=== PATIENT | female | born 1940 | race Caucasian/White ===

== ENCOUNTER → 2018-07-22 | Outpatient (CLI) | payer MEDICARE | LOC: LABWHC1 12:04 | PROVIDERS: ATTEND Physical Medicine & Rehabilitation | DX: Z01.812 Encounter for preprocedural laboratory examination (principal); N28.9 Disorder of kidney and ureter, unspecified | CPT/HCPCS: 36415; 82565; 84520 ==

== ENCOUNTER → 2020-04-09 | Outpatient (CLI) | payer MEDICARE ==
[2020-04-09 13:08] LABS: HCT 42.2 % (34.0-46.0); HGB 14.2 gm/dL (11.4-16.0); MCH 31.4 pg (25.0-35.0); MCHC 33.7 g/dL (31.0-37.0); Mean Platelet Volume 7.1; Platelet Count 224 k/uL (150-450); RBC 4.54 m/uL (3.80-5.40); RDW 12.7 % (11.5-15.5); WBC 6.1 k/uL (3.8-10.6)
[2020-04-09 13:09] LABS: Appearance,Urine Clear (Clear); Bilirubin,Urine Negative (Negative); Blood,Urine Negative (Negative); Color,Urine Light Yellow; Glucose,Urine (UA) Negative (Negative); Ketones,Urine Negative (Negative); Leukocyte Esterase,Urine Negative (Negative); Nitrite,Urine Negative (Negative); PH, Urine 6.5 (5.0-8.0); Protein,Urine Negative (Negative); Specific Gravity,Urine 1.004 (1.001-1.035); Urobilinogen,Urine <2.0 mg/dL (<2.0)
[2020-04-09 13:26] LABS: Partial Thromboplastin Time 26.4 sec (22.0-30.0); Prothrombin Time 10.4 sec (9.0-12.0)
[2020-04-09 13:27] LABS: ALT 18 U/L (4-34); AST 27 U/L (14-36); African American GFR (CKD) >90 (>60 ml/min/1.73 sqM); Albumin 4.3 g/dL (3.5-5.0); Alkaline Phosphatase 52 U/L (38-126); Anion Gap 6 mmol/L; Blood Urea Nitrogen 9 mg/dL (7-17); Calcium 9.4 mg/dL (8.4-10.2); Carbon Dioxide 27 mmol/L (22-30); Chloride 99 mmol/L (98-107); Glucose 91 mg/dL (74-99); Non-African American GFR(CKD) 88 (>60 ml/min/1.73 sqM); Potassium 4.1 mmol/L (3.5-5.1); Sodium 132 mmol/L (137-145); Total Bilirubin 0.7 mg/dL (0.2-1.3); Total Protein 6.5 g/dL (6.3-8.2)
== END | disposition home or self-care (01) ==
LOC: LABPAT 10:54
PROVIDERS: ATTEND Orthopaedic Surgery
DX: Z01.818 Encounter for other preprocedural examination (principal); Z01.812 Encounter for preprocedural laboratory examination
CPT/HCPCS: 80053; 81003; 85027; 85610; 85730; 87070; 93005

== ENCOUNTER → 2020-04-18 | Outpatient (CLI) | payer MEDICARE ==
--- NOTE | 2020-04-29 09:12 | MM ---
Reason for exam: screening (asymptomatic). Last mammogram was performed 1 year and 1 month ago. History: Patient is postmenopausal and is nulliparous. Family history of breast cancer in mother at age 86 and breast cancer in maternal aunt at age 70. Benign lumpectomy of the left breast, 1999. Physical Findings: A clinical breast exam by your physician is recommended on an annual basis and results should be correlated with mammographic findings. MG 3D Screening Mammo W/Cad Bilateral CC and MLO view(s) were taken. Prior study comparison: March 07, 2019, mammogram, performed at [facility]. December 16, 2017, mammogram, performed at [facility]. The breast tissue is heterogeneously dense. This may lower the sensitivity of mammography. Finding #1: Stable architectural distortion in the upper outer quadrant, middle position of the left breast, consistent with known excisional/lumpectomy changes. Finding #2: There are typically benign vascular, round calcifications in both breasts. There is no discrete abnormality. ASSESSMENT: Benign, BI-RAD 2 RECOMMENDATION: Routine screening mammogram of both breasts in 1 year.
== END | disposition home or self-care (01) ==
LOC: RADMAMWWP 12:05
PROVIDERS: ATTEND Family Medicine
DX: Z12.31 Encounter for screening mammogram for malignant neoplasm of breast (principal)
CPT/HCPCS: 77063; 77067

== ENCOUNTER → 2020-04-18 | Outpatient (CLI) | payer MEDICARE | END | disposition home or self-care (01) | LOC: LABPAT 12:29 | PROVIDERS: ATTEND Orthopaedic Surgery | DX: Z53.9 Procedure and treatment not carried out, unspecified reason (principal) | CPT/HCPCS: 86850; 86900; 86901 ==

== ENCOUNTER 2020-04-23 10:00 | Day surgery (SDC) | payer MEDICARE ==
[2020-04-16 09:51] VITALS: BMI 30.9
[~2020-04-23 10:00] MED LIST: DEXAMETHASONE SOD PHOSPHATE 10 MG/ML 1 ML VIAL IV ONE; HYDROcodone/APAP 5-325MG 1 EACH TAB PO PRN; HYDROmorphone 0.5 MG/0.5 ML SYRINGE IVP PRN; LIDOCAINE 1% (10MG/ML) FOR IV START INTRADERMA PRN; MAGNESIUM HYDROXIDE 2,400 MG/10 ML CUP PO PRN; MIDAZOLAM 2 MG/2 ML VIAL IV PRN; NALOXONE 0.4 MG/ML 1 ML VIAL IV PRN; ONDANSETRON 4 MG/2 ML VIAL IVP ONE; ONDANSETRON 4 MG/2 ML VIAL IVP PRN; fentaNYL (PF) 50 MCG/ML 2 ML AMP IVP PRN
[2020-04-23] MEDS ORDERED: ACETAMINOPHEN TAB 500 MG TAB ONE (10:43)
[2020-04-23] MEDS: LACTATED RINGERS 1,000 ML IV SCH (10:55)
[2020-04-23] MEDS ORDERED: MELOXICAM 7.5 MG TAB PO ONE (10:56)
[2020-04-23] MEDS ORDERED: GABAPENTIN 300 MG CAP PO STA (11:00)
[2020-04-23] MEDS ORDERED: TRANEXAMIC ACID 1,000 MG in SODIUM CHLORIDE 0.9% 100 ML IVPB ONE ×2 (11:34→11:45)
[2020-04-23] MEDS ORDERED: HEPARIN SODIUM,PORCINE 10,000 UNIT/ML 1 ML VIAL ONE (11:45)
[2020-04-23] MEDS ORDERED: PROPOFOL 10 MG/ML 20 ML VIAL IV ONE (11:45)
[2020-04-23] MEDS ORDERED: SODIUM CHLORIDE 0.9% 100 ML BAG ONE (11:45)
[2020-04-23] MEDS ORDERED: MIDAZOLAM 2 MG/2 ML VIAL ONE (11:45)
[2020-04-23] MEDS ORDERED: TRANEXAMIC ACID 1,000 MG/10 ML VIAL ONE (11:45)
[2020-04-23] MEDS ORDERED: SODIUM CHLORIDE 0.9% IRRIG 1,000 ML BTL IRRIGATION ONE (11:45)
[2020-04-23] MEDS ORDERED: ceFAZolin 3,000 MG in SODIUM CHLORIDE 0.9% IRRIGATIO 3,000 ML IRRIGATION ONE ×4 (11:50)
[2020-04-23] MEDS ORDERED: ROPIVACAINE 246.25 MG, EPINEPHrine 0.5 MG, KETOROLAC 30 MG, cloNIDine HCL/PF 80 MCG, WA... MISCELLANE ONE ×5 (12:16)
[2020-04-23] MEDS ORDERED: LACTATED RINGERS 1,000 ML IV ONE (12:34)
--- NOTE | 2020-04-23 13:28 | P.OP ---
Date of Procedure: 04/23/20 Preoperative Diagnosis: Severe osteoarthritis right hip Postoperative Diagnosis: Severe osteoarthritis right hip Procedure(s) Performed: Right total hip arthroplasty with a direct anterior approach Implants: Keith and nephew Polarstem size 3 standard Keith & Nephew R3, 3 hole acetabular shell, 48 mm Keith [employer] Nephew reflection 6.5 mm cancellus screw, 20 mm 2 Keith [employer]hew R3, XLPE 20 acetabular liner Keith & Nephew Oxinium femoral head 32 m, +0 All components were press-fit. The articulation is Oxinium on polyethylene. Anesthesia: spinal Surgeon: Emigdio Cleary Assembly Operator #1: Amalia Lombardi Estimated Blood Loss (ml): 100 Pathology: other (Femoral head) Condition: stable Disposition: PACU Indications for Procedure: After failure of conservative treatment we discussed the surgical and nonsurgical treatment options at length. Patient wishes to proceed with a total hip arthroplasty with a direct anterior approach. Complications specific to this procedure were discussed at length, including but not limited to infection, leg length discrepancy, dislocation, and nerve injury. Covid-19 was also discussed at length with the patient, and they are aware of the current policies and procedures. The patient was given the option of delaying surgery, but they elect to proceed knowing these risks. Patient is aware of all these complications and informed consent was obtained Operative Findings: The operative findings are consistent with severe osteoarthritis of the right hip Description of Procedure: Patient was seen and evaluated in the preoperative area, consent was reviewed, and the surgical site was marked with a skin marker. Patient was then brought to the operating room and given prophylactic antibiotics intravenously. 1 g of Tranexamic acid was also given. A spinal anesthetic was administered by the anesthesia department. The patient was then placed on the [place] table with the bony prominences well-padded. The hip area was then prepped and draped in usual sterile fashion. A universal timeout was then performed, which confirmed the patient's name, surgical site, ALLERGIES, and procedure being performed. Next the incision site was located at 1 cm distal and 1 cm lateral to the anterior superior iliac spine. The skin and subcutaneous tissues were sharply incised. Incision was carefully dissected down to the fascia overlying the tensor fascia arturo muscle. This fascia was then incised in line with the incision. Next, using blunt finger dissection, the tensor fascia arturo muscle was dissected off its investing fascia. The muscle was then carefully retracted laterally with a cobra retractor over the lateral neck of the femur. Next, the circumflex vessels were identified and cauterized using the AquaMantis device. The anterior hip capsule was then exposed. The capsule was then opened and an inverted T fashion. Cobra retractors were then placed intracapsularly. The proximal femur was then visualized. The femoral neck was then osteotomized appropriate level above the lesser trochanter. Small amount of traction was placed with the [place] table. A small wedge of bone was then removed from the remaining femoral head. Next, using a corkscrew femoral head was easily removed from the acetabulum. On gross visual inspection, the femoral head had complete loss of articular cartilage in multiple periarticular osteophytes. Attention was then turned to the acetabulum. the acetabulum was exposed and any remaining labrum was excised. Sequential reaming of the acetabulum was performed using fluoroscopic guidance. When the appropriate size was reached, a trial was then placed. The position and fit of the trial was checked with fluoroscopy. The trial was then removed. Then, using fluoroscopic guidance, the final implant was impacted at 20 of anteversion and 40 of abduction, and fully seated in the acetabulum. 2 screws were then placed in the acetabulum. Again fluoroscopy was used to check position of the screws. Next, the liner was then impacted, with a 20 elevated liner located in the anterior superior quadrant. Component locking was confirmed. Attention was then directed to the femur. With the aid of the [place] table, the femur was externally rotated to approximately 130, extended, and abducted under the opposite leg. A side hook was then placed under the proximal femur, and the side hook elevator was used to elevate the proximal femur. Retractors were then placed. A capsular release was performed, as well as a release of the conjoined tendon, which afforded excellent visualization of the proximal femur. Next, a box osteotome was used to lateralize the proximal femur. A hand potter was then used to locate the femoral canal. Sequential broaching was then performed with appropriate size which afforded excellent fixation in the proximal femur. A trial was then placed with appropriate head and neck, and the hip was gently reduced with the aid of the [place] table. Fluoroscopy was then used to check position of the components, as well as to ensure equal leg lengths. The hip was then gently dislocated and the trials were then removed. Final implants were then impacted and the hip was again reduced. Final fluoroscopic x-rays confirmed that the components were in anatomic position, as well as equal leg lengths. The hip was also taken through range of motion, and found to be stable. The hip was then copiously irrigated with antibiotic solution with pulsatile lavage. The hip was then irrigated with Irrisept solution. The soft tissues were then injected with a ropivacaine solution, which consisted of 246.25 mg of ropivacaine, 0.5 mg of epinephrine, 30 mg of Toradol, 80 g of clonidine, and 48.45 mL of sterile water, for a total of 100 mL of fluid injected. A second dose of 1 g of Tranexamic acid was also given. the fascia was then closed with 2-0 strata fix suture. The subcutaneous tissue was closed with 3-0 Vicryl. The subcuticular tissue was closed with 3-0 strata fix suture. The skin was then closed with Dermabond glue and a sterile silver dressing. The patient was then transferred to the recovery room in stable condition. The multimedia production assistant JULI Patrick was required due to the complexity of surgery, and the need for skilled assistant public defender for positioning, draping, exposure, retraction, and closure of the wound.
--- NOTE | 2020-04-23 13:47 | XR ---
Fluoroscopy INDICATION: Pain FINDINGS: Fluoroscopy time: 36 seconds. Images obtained: 2. IMPRESSIONS: 1. Documentation of fluoroscopy.
[2020-04-23 13:50] VITALS: RESP 16
--- NOTE | 2020-04-23 13:53 | FL ---
Fluoroscopy INDICATION: Pain FINDINGS: Fluoroscopy time: 36 seconds. Images obtained: 0. IMPRESSIONS: 1. Documentation of fluoroscopy.
--- NOTE | 2020-04-23 14:06 | XR ---
EXAMINATION TYPE: XR Hip Limited RT DATE OF EXAM: 04/23/2020 COMPARISON: None HISTORY: Postop TECHNIQUE: AP right hip FINDINGS: Femoral and acetabular components of in place. No acute fractures are evident. Postsurgical changes are within soft tissues. IMPRESSION: 1. No acute fracture post right hip replacement.
[2020-04-23] MEDS: SODIUM CHLORIDE 0.9% 1,000 ML IV SCH ×2 (17:31→20:18)
[2020-04-23 17:37] LABS: Glucose,Whole Blood 121 mg/dL (75-99)
[2020-04-23] MEDS ORDERED: ACETAMINOPHEN TAB 500 MG TAB PO PRN (18:59)
[2020-04-23] MEDS: ASPIRIN 325 MG TAB PO SCH (20:17)
[2020-04-23] MEDS ORDERED: SENNOSIDES-DOCUSATE SODIUM 1 EACH TAB PO SCH (21:00)
[2020-04-23] MEDS: HYDROmorphone 0.5 MG/0.5 ML SYRINGE IVP PRN (21:49)
--- NOTE | 2020-04-23 22:28 | P.CONS ---
History of Present Illness - Reason for Consult Consult date: 04/23/20 Medical management Requesting physician: Emigdio Cleary - Chief Complaint Post right total hip direct anterior approach arthroplasty - History of Present Illness 79-year-old female one of Dr. Vyas's patient with past medical history of hypertension and hyperlipidemia with severe arthritis with worsening pain and discomfort of both hip had seen Dr. Cleary and further x-ray and testing revealed bilateral hip severe arthritis require surgery patient was more symptomatic of the right side ended up going for right total hip anterior approach arthroplasty today successfully she is complaining of mild pain otherwise no dropping foot no major problem with palpitation arrhythmia patient remain hemodynamically stable. Review of Systems CONSTITUTIONAL: Well-developed no acute respiratory distress. EYES: No icterus sclerae, no conjunctivitis. EARS, NOSE, MOUTH, THROAT, and FACE: No sore throat, lymphadenopathy, carotid bruits or deformity. RESPIRATORY: No SOB cough or wheezes. CARDIOVASCULAR: No CP, Palpitation, PND, Orthopnea, or angina. GASTROINTESTINAL: No Abd pain, Nausea or vomiting, no Diarrhea or constipation, No GI Bleed, no distention or masses. GENITOURINARY: Negative for Hematuria or UTI, no kidney stones. INTEGUMENT/BREAST: Negative for any muscular injury with mild osteoarthritis.. HEMATOLOGIC/LYMPHATIC: Negative for bleed or purpura. MUSCULOSKELTAL: Slight pain and discomfort in the right hip area. NEURLOGICAL: No LOC, Sz or syncope, blurred vision dizziness or abnormality.. BEHAVIORAL/PSYCH: Negative. ENDOCRINE: Negative. Past Medical History Past Medical History: Cancer, Hyperlipidemia, Hypertension, Osteoarthritis (OA), Thyroid Disorder Additional Past Medical History / Comment(s): hx migraines, hx thyroid cancer, hx kidney stone, History of Any Multi-Drug Resistant Organisms: None Reported Past Surgical History: Tonsillectomy Additional Past Surgical History / Comment(s): thyroidectomy, maria eugenia cataracts,right total hip arthroplasty Past Anesthesia/Blood Transfusion Reactions: Motion Sickness Past Psychological History: Anxiety Smoking Status: Never smoker Past Alcohol Use History: Daily Additional Past Alcohol Use History / Comment(s): 2 glasses of wine most days Past Drug Use History: None Reported - Past Family History Mother Family Medical History: Cancer Additional Family Medical History / Comment(s): colon ,breast Brother(s) Family Medical History: Cancer Additional Family Medical History / Comment(s): throat cancer Medications and Allergies Home Medications Medication Instructions Recorded Confirmed Type Acetaminophen [Tylenol Extra 1,000 mg PO BID PRN 04/16/20 04/16/20 History Strength] Ibuprofen [Advil] 200 mg PO Q8HR PRN 04/16/20 04/16/20 History Levothyroxine Sodium [Levoxyl] 125 mcg PO MOTUWETHFRSA 04/16/20 04/16/20 History Losartan Potassium [Cozaar] 50 mg PO DAILY 04/16/20 04/16/20 History Simvastatin [Zocor] 20 mg PO DAILY 04/16/20 04/16/20 History hydroCHLOROthiazide [Hydrodiuril] 12.5 mg PO DAILY 04/16/20 04/16/20 History Allergies Allergy/AdvReac Type Severity Reaction Status Date / Time cat dander Allergy Unknown Verified 04/23/20 10:15 Penicillins Allergy Rash/Hives Verified 04/23/20 10:15 Sulfa (Sulfonamide Allergy Unknown Verified 04/23/20 10:15 Antibiotics) Childhood Physical Exam Vitals: Vital Signs Temp Pulse Pulse Resp BP BP Pulse Ox 04/23/20 17:14 98.5 F 71 16 111/68 93 L 04/23/20 16:45 72 16 138/67 99 04/23/20 16:00 70 16 149/69 98 04/23/20 15:30 63 16 127/66 98 04/23/20 15:15 67 16 122/61 97 04/23/20 15:00 66 16 118/59 98 04/23/20 14:45 68 16 118/57 100 04/23/20 14:30 66 16 116/56 99 04/23/20 14:15 64 16 111/57 99 04/23/20 14:00 67 16 108/61 100 04/23/20 13:46 70 16 101/55 97 04/23/20 13:31 97.4 F L 75 14 96/54 95 04/23/20 10:19 98.3 F 77 16 157/74 97 Intake and Output 04/23/20 04/23/20 04/23/20 06:59 14:59 22:59 Intake Total 1451 Output Total 100 Balance 1351 Intake: IV 1451 Output: Estimated Blood Loss 100 Other: Weight 86.3 kg 86.3 kg General Appearance: Alert, cooperative, no distress, appears stated age. Neck HEENT: Supple, no lymphadenopathy, no thyroid enlargement, no carotid bruits. Lungs: Clear to auscultation without crackles or wheezes no rhonchi, no deformity. Chest Wall: Chest wall normal expansion with deep inspiration no tenderness and no deformity was found on exam, no costochondral pain or discomfort. Heart: Regular rate and rhythm, S1, S2 normal, no murmur, rub or gallop. Back: Symmetric, no curvature, ROM normal, no CVA tenderness. Abdomen: Soft, non-tender, bowel sounds active all four quadrants, no masses, no organomegaly. Extremities: Extremities normal, atraumatic, no cyanosis or edema. Pulses: 2+ and symmetric. Skin: Skin color, texture, tugor normal, no rashes or lesions. Neurologic: Alert oriented x3 cranial nerves II through XII intact, no motor deficit, no abnormal balance or gait. General Appearance: Alert, cooperative, no distress, appears stated age. Neck HEENT: Supple, no lymphadenopathy, no thyroid enlargement, no carotid bruits. Lungs: Clear to auscultation without crackles or wheezes no rhonchi, no deformity. Chest Wall: Chest wall normal expansion with deep inspiration no tenderness and no deformity was found on exam, no costochondral pain or discomfort. Heart: Regular rate and rhythm, S1, S2 normal, no murmur, rub or gallop. Back: Symmetric, no curvature, ROM normal, no CVA tenderness. Abdomen: Soft, non-tender, bowel sounds active all four quadrants, no masses, no organomegaly. Extremities: Incision of the right hip looks good with no sign of induration bleeding or hematoma. Pulses: 2+ and symmetric. Skin: Skin color, texture, tugor normal, no rashes or lesions. Neurologic: Alert oriented x3 cranial nerves II through XII intact, no motor deficit, no abnormal balance or gait. Results Labs: Abnormal Lab Results - Last 24 Hours (Table) 04/23/20 Range/Units 17:25 POC Glucose (mg/dL) 121 H (75-99) mg/dL Assessment and Plan Assessment: 1 post right total hip arthroplasty direct anterior approach, doing well resume home meds, continue to watch patient and with [place] status, watch for any infection. 2 hypertension: Stable so far on losartan 50 mg daily and hydrochlorothiazide 12.5 mg a day. 3 hyperlipidemia: Remain on Zocor 20 mg daily. 4 chronic edema: Remain on diuretics. 5 hypothyroidism: Continue 125 g of levothyroxine. 6 pain management: Patient on hydrocodone on as-needed basis. 7 history of thyroid cancer: Has been in remission and doing well with outside replacement. 8 DVT prophylaxis: Patient will be on anticoagulation. Orthopedic protocol. CODE STATUS: Full code. Dr. Cleary thank you very much for the consult I can be any further help to please let me know.
[2020-04-24] MEDS: HYDROmorphone 0.5 MG/0.5 ML SYRINGE IVP PRN (02:34)
[2020-04-24 04:29] VITALS: TEMP 98.2
[2020-04-24] MEDS: LACTATED RINGERS 1,000 ML IV SCH (05:19)
[2020-04-24] MEDS ORDERED: LEVOTHYROXINE 125 MCG TAB PO SCH (06:30)
[2020-04-24 07:29] VITALS: BP 97/61; PULSE 77
[2020-04-24] MEDS ORDERED: KETOROLAC 15 MG/ML 1 ML VIAL IVP PRN (08:16)
[2020-04-24] MEDS ORDERED: HYDROcodone/APAP 7.5-325MG 1 EACH TAB PO PRN ×2 (08:17)
[2020-04-24] MEDS: ASPIRIN 325 MG TAB PO SCH (08:24)
--- NOTE | 2020-04-24 08:41 | P.DS ---
Providers Expected date of discharge: 04/24/20 Attending physician: Emigdio Cleary Consults: 04/23/20 06:55 Consult Physician Routine Consulting Provider: Vineet Cool Reason/Comments: medical management Do you want consulting provider notified?: Yes Primary care physician: Boaz Vyas - Discharge Diagnosis(es) (1) Osteoarthritis of right hip Current Visit: Yes Status: Acute (2) Status post total hip replacement, right Current Visit: Yes Status: Acute Hospital Course: This is a 79-year-old female with known history of degenerative arthritis of the right hip. The patient presents for evaluation. After discussion and consideration patient elects to proceed with total hip arthroplasty. The patient is seen preoperatively by Dr. Cleary and medically cleared for surgery by their primary care physician. Patient is admitted to [facility] on 04/23/2020 for total hip arthroplasty. The procedures performed without complication or sequelae. The patient is doing well postoperatively. Labs and vital signs are stable on day of discharge. On day of discharge patient's hip incision is healing well. There is minimal erythema. There is no drainage noted at this time. There is minimal soft tissue swelling to the hip and thigh. Patient has full foot and ankle motion without difficulty or pain. Calf is soft and nontender to palpation. Neurovascular status to the right lower extremity is intact. Patient is discharged home in good condition. Opioid start talking form is reviewed and signed at patient bedside. Please see med rec for accurate list of home medications. Plan - Discharge Summary Discharge Rx Participant: No New Discharge Prescriptions: New Aspirin 325 mg PO BID #60 tab HYDROcodone/APAP 5-325MG [[place] 5-325] 1 - 2 tab PO Q6HR PRN #48 tab PRN Reason: Pain Sennosides [Senokot] 2 tab PO DAILY PRN #60 tablet PRN Reason: Constipation No Action hydroCHLOROthiazide [Hydrodiuril] 12.5 mg PO DAILY Losartan Potassium [Cozaar] 50 mg PO DAILY Levothyroxine Sodium [Levoxyl] 125 mcg PO MOTUWETHFRSA Simvastatin [Zocor] 20 mg PO DAILY Ibuprofen [Advil] 200 mg PO Q8HR PRN PRN Reason: Pain Acetaminophen [Tylenol Extra Strength] 1,000 mg PO BID PRN PRN Reason: Pain Discharge Medication List Acetaminophen [Tylenol Extra Strength] 1,000 mg PO BID PRN 04/16/20 [History] Ibuprofen [Advil] 200 mg PO Q8HR PRN 04/16/20 [History] Levothyroxine Sodium [Levoxyl] 125 mcg PO MOTUWETHFRSA 04/16/20 [History] Losartan Potassium [Cozaar] 50 mg PO DAILY 04/16/20 [History] Simvastatin [Zocor] 20 mg PO DAILY 04/16/20 [History] hydroCHLOROthiazide [Hydrodiuril] 12.5 mg PO DAILY 04/16/20 [History] Aspirin 325 mg PO BID #60 tab 04/24/20 [Rx] HYDROcodone/APAP 5-325MG [[place] 5-325] 1 - 2 tab PO Q6HR PRN #48 tab 04/24/20 [Rx] Sennosides [Senokot] 2 tab PO DAILY PRN #60 tablet 04/24/20 [Rx] Follow up Appointment(s)/Referral(s): Amalia Lombardi PAC [PHYSICIAN SKI PATROL OFFICER] - 05/06/20 1:30 pm Boaz Vyas MD [Primary Care Provider] - 1 Week Activity/Diet/Wound Care/Special Instructions: Weightbearing as tolerated with walker. Leave dressing intact. Dressing may be removed by home care nurse or by patient in 10 days. May shower with dressing on. Please take aspirin 325mg twice daily for 30 days to prevent blood clots. Recommend use of compression stockings daily until follow up to help prevent swelling and blood clots. May remove at night before sleeping. Please follow-up with [facility] in 2 weeks and call with any questions or concerns, . Discharge Disposition: HOME WITH HOME HEALTH SERVICES
[2020-04-24] MEDS ORDERED: FAMOTIDINE 20 MG TAB PO SCH (09:00)
[2020-04-24] MEDS ORDERED: ATORVASTATIN 10 MG TAB PO SCH (09:00)
[2020-04-24] MEDS ORDERED: MELOXICAM 7.5 MG TAB PO SCH (09:00)
[2020-04-24] MEDS ORDERED: LOSARTAN 50 MG TAB PO SCH (09:00)
[2020-04-24 10:20] LABS: Basophils % (A) 0 %; Eosinophils # (A) 0.1 k/uL (0-0.7); Eosinophils % (A) 1 %; HCT 34.3 % (34.0-46.0); HGB 11.5 gm/dL (11.4-16.0); Lymphocytes # (A) 2.1 k/uL (1.0-4.8); Lymphocytes % (A) 20 %; MCH 32.1 pg (25.0-35.0); MCHC 33.6 g/dL (31.0-37.0); MCV 95.3 fL (80.0-100.0); Mean Platelet Volume 7.4; Monocytes # (A) 0.7 k/uL (0-1.0); Monocytes % (A) 6 %; Neutrophils # (A) 7.8 k/uL (1.3-7.7); Neutrophils % (A) 72 %; Platelet Count 280 k/uL (150-450); RDW 12.9 % (11.5-15.5); WBC 10.8 k/uL (3.8-10.6)
--- NOTE | 2020-04-24 14:04 | P.PN ---
Subjective Progress Note Date: 04/24/20 - History of Present Illness 79-year-old female one of Dr. Vyas's patient with past medical history of hypertension and hyperlipidemia with severe arthritis with worsening pain and discomfort of both hip had seen Dr. Cleary and further x-ray and testing revealed bilateral hip severe arthritis require surgery patient was more symptomatic of the right side ended up going for right total hip anterior approach arthroplasty today successfully she is complaining of mild pain o therwise no dropping foot no major problem with palpitation arrhythmia patient remain hemodynamically stable. 04/24: patient states that she is having some difficulty with pain in moving in bed. She did not feel the [place] helped but she did receive IV pain medication which took the edge off. She has been afebrile, heart rate 77, blood pressure 97/61, pulse ox 93% on room air.blood work reveals WBC 10.8, hemoglobin 11.5.discharge plan is home with homecare. The patient will have follow-up with Dr. Boaz Vyas following discharge. Review of Systems CONSTITUTIONAL: Well-developed no acute respiratory distress. denies fever denies chills. EYES: No icterus sclerae, no conjunctivitis. EARS, NOSE, MOUTH, THROAT, and FACE: No sore throat, lymphadenopathy, carotid bruits or deformity. RESPIRATORY: No SOB cough or wheezes. CARDIOVASCULAR: No CP, Palpitation, PND, Orthopnea, or angina. GASTROINTESTINAL: No Abd pain, Nausea or vomiting, no Diarrhea or constipation, No GI Bleed, no distention or masses. GENITOURINARY: Negative for Hematuria or UTI, no kidney stones. INTEGUMENT/BREAST: Negative for any muscular injury with mild osteoarthritis.. HEMATOLOGIC/LYMPHATIC: Negative for bleed or purpura. MUSCULOSKELTAL: Slight pain and discomfort in the right hip area. NEURLOGICAL: No LOC, Sz or syncope, blurred vision dizziness or abnormality.. BEHAVIORAL/PSYCH: Negative. ENDOCRINE: Negative. physical examination General Appearance: Alert, cooperative, no distress, appears stated age. Neck HEENT: Supple, no lymphadenopathy, no thyroid enlargement, no carotid bruits. Lungs: Clear to auscultation without crackles or wheezes no rhonchi, no deformity. Chest Wall: Chest wall normal expansion with deep inspiration no tenderness and no deformity was found on exam, no costochondral pain or discomfort. Heart: Regular rate and rhythm, S1, S2 normal, no murmur, rub or gallop. Back: Symmetric, no curvature, ROM normal, no CVA tenderness. Abdomen: Soft, non-tender, bowel sounds active all four quadrants, no masses, no organomegaly. Extremities: Incision of the right hip with no sign of bleeding or hematoma. Pulses: 2+ and symmetric. Skin: Skin color, texture, tugor normal, no rashes or lesions. Neurologic: Alert oriented x3 cranial nerves II through XII intact, no motor deficit, no abnormal balance or gait. assessment and plan 1 post right total hip arthroplasty direct anterior approach, doing well resume home meds, continue to watch patient and with [place]arc[place] status, watch for any infection. 2 hypertension: Stable so far on losartan 50 mg daily and hydrochlorothiazide 12.5 mg a day. 3 hyperlipidemia: Remain on Zocor 20 mg daily. 4 chronic edema: Remain on diuretics. 5 hypothyroidism: Continue 125 g of levothyroxine. 6 pain management: Patient on hydrocodone on as-needed basis. 7 history of thyroid cancer: Has been in remission and doing well with outside replacement. 8 DVT prophylaxis. aspirin 325 mg twice daily. CODE STATUS: Full code. Dr. Cleary thank you very much for the consult I can be any further help to please let me know. Discharge Plan: home with [facility] Impression and plan of care have been directed as dictated by the signing meliton rivera. Terri Bell nurse practitioner acting as scribe for signing physician. Objective - Vital Signs Vital signs: Vital Signs Temp 98.2 F 04/24/20 07:00 Pulse 77 04/24/20 07:00 Resp 16 04/24/20 07:00 BP 97/61 04/24/20 07:00 Pulse Ox 93 L 04/24/20 07:00 Intake & Output 04/23/20 04/24/20 04/24/20 18:59 06:59 18:59 Intake Total 1451 Output Total 100 Balance 1351 Weight 86.3 kg Intake: IV 1451 Output: Estimated Blood Loss 100 Other: Voiding Method Toilet # Voids 1 - Labs CBC & Chem 7: 04/24/20 09:00 Labs: Abnormal Lab Results - Last 24 Hours (Table) 04/23/20 Range/Units 17:25 POC Glucose (mg/dL) 121 H (75-99) mg/dL
== END 2020-04-24 13:53 | disposition home health service (06) ==
LOC: OR 10:00 → EDSTATUS 11:10 → 4SSUR 13:28 → OR 04-24 13:53
PROVIDERS: ATTEND Orthopaedic Surgery
DX: M16.0 Bilateral primary osteoarthritis of hip (principal); I10 Essential (primary) hypertension; E78.5 Hyperlipidemia, unspecified; F41.9 Anxiety disorder, unspecified; E89.0 Postprocedural hypothyroidism; G43.909 Migraine, unspecified, not intractable, without status migrainosus; E66.9 Obesity, unspecified; Z79.899 Other long term (current) drug therapy; Z97.3 Presence of spectacles and contact lenses; Z85.850 Personal history of malignant neoplasm of thyroid; Z82.49 Family history of ischemic heart disease and other diseases of the circulatory system; Z88.0 Allergy status to penicillin; Z88.2 Allergy status to sulfonamides; Z87.442 Personal history of urinary calculi; Z98.41 Cataract extraction status, right eye; Z98.42 Cataract extraction status, left eye; Z90.89 Acquired absence of other organs; Z80.0 Family history of malignant neoplasm of digestive organs; Z80.3 Family history of malignant neoplasm of breast; Z80.8 Family history of malignant neoplasm of other organs or systems; Z79.890 Hormone replacement therapy; Z79.1 Long term (current) use of non-steroidal anti-inflammatories (NSAID); Z91.09 Other allergy status, other than to drugs and biological substances; Z68.32 Body mass index [BMI] 32.0-32.9, adult
CPT/HCPCS: 27130; 97110; 97161; 97535; 97165; 86891; 88305; 85025; 88311; 73501 ×2; C1776; J2250; J0171; J1644; J1100; J0690 ×3; J2405; J1885; J2795; J2704; J0735; J1170 ×2; 86850; 86900; 86901

== ENCOUNTER → 2021-02-19 | Outpatient (CLI) | payer MEDICARE ==
[2021-02-19 11:06] LABS: HCT 40.8 % (34.0-46.0); HGB 14.5 gm/dL (11.4-16.0); MCH 32.7 pg (25.0-35.0); MCHC 35.5 g/dL (31.0-37.0); MCV 92.2 fL (80.0-100.0); Mean Platelet Volume 6.9; Platelet Count 252 k/uL (150-450); RBC 4.42 m/uL (3.80-5.40); RDW 12.3 % (11.5-15.5); WBC 5.7 k/uL (3.8-10.6)
[2021-02-19 11:21] LABS: ALT 31 U/L (4-34); AST 36 U/L (14-36); African American GFR (CKD) >90 (>60 ml/min/1.73 sqM); Albumin 4.3 g/dL (3.5-5.0); Alkaline Phosphatase 58 U/L (38-126); Anion Gap 9 mmol/L; Blood Urea Nitrogen 10 mg/dL (7-17); Calcium 9.4 mg/dL (8.4-10.2); Carbon Dioxide 25 mmol/L (22-30); Chloride 103 mmol/L (98-107); Glucose 94 mg/dL (74-99); Non-African American GFR(CKD) 89 (>60 ml/min/1.73 sqM); Sodium 137 mmol/L (137-145); Total Bilirubin 0.5 mg/dL (0.2-1.3); Total Protein 6.6 g/dL (6.3-8.2)
[2021-02-19 11:37] LABS: INR 0.9 (<1.2); Partial Thromboplastin Time 26.1 sec (22.0-30.0); Prothrombin Time 10.2 sec (9.0-12.0)
[2021-02-19 11:38] LABS: Appearance,Urine Clear (Clear); Bilirubin,Urine Negative (Negative); Blood,Urine Small (Negative); Color,Urine Yellow; Glucose,Urine (UA) Negative (Negative); Ketones,Urine Negative (Negative); Leukocyte Esterase,Urine Negative (Negative); Nitrite,Urine Negative (Negative); Protein,Urine Negative (Negative); RBC,Urine 1 /hpf (0-5); Specific Gravity,Urine 1.009 (1.001-1.035); Urobilinogen,Urine <2.0 mg/dL (<2.0); WBC,Urine 1 /hpf (0-5)
== END | disposition home or self-care (01) ==
LOC: LABPAT 10:09
PROVIDERS: ATTEND Orthopaedic Surgery
DX: Z01.812 Encounter for preprocedural laboratory examination (principal); M16.12 Unilateral primary osteoarthritis, left hip
CPT/HCPCS: 36415; 80053; 81001; 85027; 85610; 85730; 87070

== ENCOUNTER 2021-02-24 08:01 | Inpatient (IN) | payer MEDICARE ==
[2021-02-20 15:32] VITALS: BMI 30.9
[~2021-02-24 08:01] MED LIST changes: +ACETAMINOPHEN TAB 500 MG TAB PO PRN; -DEXAMETHASONE SOD PHOSPHATE 10 MG/ML 1 ML VIAL IV ONE; +DEXAMETHASONE SOD PHOSPHATE 4 MG/ML 1 ML VIAL IV ONE; +GABAPENTIN 300 MG CAP PO PRN; -HYDROcodone/APAP 5-325MG 1 EACH TAB PO PRN; -HYDROmorphone 0.5 MG/0.5 ML SYRINGE IVP PRN; -LIDOCAINE 1% (10MG/ML) FOR IV START INTRADERMA PRN; -MAGNESIUM HYDROXIDE 2,400 MG/10 ML CUP PO PRN; +MELOXICAM 7.5 MG TAB PO PRN; -MIDAZOLAM 2 MG/2 ML VIAL IV PRN; -NALOXONE 0.4 MG/ML 1 ML VIAL IV PRN; -ONDANSETRON 4 MG/2 ML VIAL IVP PRN; +TRANEXAMIC ACID 1,000 MG in SODIUM CHLORIDE 0.9% 100 ML IVPB PRN; -fentaNYL (PF) 50 MCG/ML 2 ML AMP IVP PRN
[2021-02-24] MEDS ORDERED: LIDOCAINE 1% (10MG/ML) FOR IV START INTRADERMA ONE (08:42)
[2021-02-24] MEDS: LACTATED RINGERS 1,000 ML IV SCH ×2 (08:43→15:53)
[2021-02-24] MEDS ORDERED: HEPARIN SODIUM,PORCINE 10,000 UNIT/ML 1 ML VIAL ONE (09:08)
[2021-02-24] MEDS ORDERED: fentaNYL (PF) 50 MCG/ML 2 ML AMP ONE (09:08)
[2021-02-24] MEDS ORDERED: TRANEXAMIC ACID 1,000 MG/10 ML VIAL ONE (09:08)
[2021-02-24] MEDS ORDERED: SODIUM CHLORIDE 0.9% IRRIG 1,000 ML BTL IRRIGATION ONE (09:08)
[2021-02-24] MEDS ORDERED: SODIUM CHLORIDE 0.9% 100 ML BAG ONE (09:08)
[2021-02-24] MEDS ORDERED: MIDAZOLAM 2 MG/2 ML VIAL ONE (09:08)
[2021-02-24] MEDS ORDERED: PHENYLEPHRINE-0.9% NACL SYG 1,000 MCG/10 ML SYRINGE ONE (09:08)
[2021-02-24] MEDS ORDERED: PROPOFOL 10 MG/ML 20 ML VIAL IV ONE (09:08)
[2021-02-24] MEDS ORDERED: ceFAZolin 1,000 MG in SODIUM CHLORIDE 0.9% 1,000 ML IRRIGATION ONE (09:14)
[2021-02-24] MEDS ORDERED: HYDROmorphone 0.2 MG/1 ML SYRINGE IVP PRN (09:16)
[2021-02-24] MEDS ORDERED: MAGNESIUM HYDROXIDE 2,400 MG/10 ML CUP PO PRN (09:16)
[2021-02-24] MEDS ORDERED: HYDROmorphone 0.5 MG/0.5 ML SYRINGE IVP PRN ×2 (09:16)
[2021-02-24] MEDS ORDERED: NALOXONE 0.4 MG/ML 1 ML VIAL IV PRN (09:16)
[2021-02-24] MEDS ORDERED: ONDANSETRON 4 MG/2 ML VIAL IVP PRN (09:16)
[2021-02-24] MEDS ORDERED: SODIUM CHLORIDE 0.9% 1,000 ML IV SCH (09:30)
[2021-02-24] MEDS: ROPIVACAINE/EPI/CLONIDINE/KET 50 ML SYRINGE MISCELLANE PRN ×2 (09:42→10:15)
--- NOTE | 2021-02-24 10:30 | P.OP ---
Date of Procedure: 02/24/21 Preoperative Diagnosis: Severe osteoarthritis left hip Postoperative Diagnosis: Severe osteoarthritis left hip Procedure(s) Performed: Left total hip arthroplasty with a direct anterior approach Implants: [employer] Polarstem standard size 3 [employer] R3, 3 hole hemispherical acetabular shell, 48 mm [employer] Reflection 6.5 mm cancellus screw, 20 mm 2 [employer] R3, XLPE 20 acetabular liner [employer] Oxinium femoral head 32 m, +4 All components were press-fit. The articulation is Oxinium on polyethylene. Anesthesia: spinal Surgeon: Emigdio Cleary Veneer Repairer Machine #1: Amalia Lombardi Estimated Blood Loss (ml): 200 (105 mL returned with Cell Saver) Pathology: none sent Condition: stable Disposition: PACU Indications for Procedure: After failure of conservative treatment we discussed the surgical and nonsurgical treatment options at length. Patient wishes to proceed with a total hip arthroplasty with a direct anterior approach. Complications specific to this procedure were discussed at length, including but not limited to infection, leg length discrepancy, dislocation, nerve injury, and fracture. Covid-19 was also discussed at length with the patient, and they are aware of the current policies and procedures. The patient was given the option of delaying surgery, but they elect to proceed knowing these risks. Patient is aware of all these complications and informed consent was obtained Operative Findings: The operative findings are consistent with severe osteoarthritis of the left hip Description of Procedure: Patient was seen and evaluated in the preoperative area and the consent was reviewed. The operative site was marked with a skin marker. The patient was then brought to the operating room and given preoperative antibiotics intravenously. 1 g of Tranexamic acid was also given intravenously. A spinal anesthetic was administered by the anesthesia department. The patient was then placed on the [place] table with the bony prominences well-padded. The hip area was then prepped with a ChloraPrep solution and draped in the usual sterile fashion. A universal timeout was then performed, which confirmed the patient's name, surgical site, ALLERGIES, and procedure being performed on the consent. Next the incision site was located at 1 cm distal to the anterior superior iliac spine along the flexion crease of the hip. The skin and subcutaneous tissues were sharply incised. Incision was carefully dissected down to the fascia overlying the tensor fascia arturo muscle. This fascia was then incised in line with the incision. Care was taken to stay laterally in order to avoid injuring the lateral femoral cutaneous nerve. Next, using blunt finger dissection, the tensor fascia arturo muscle was dissected off its investing fascia. The muscle was then carefully retracted laterally with a cobra retractor over the lateral neck of the femur. Next, the circumflex vessels were identified and cauterized using the AquaMantis device. The anterior hip capsule was then exposed. The capsule was then opened and an inverted T fashion. Cobra retractors were then placed intracapsularly. The retractors were maintained intracapsular throughout the procedure. The proximal femur was then visualized. A small amount of traction was placed on the leg. The femoral neck was then osteotomized appropriate level above the lesser trochanter. A small wedge of bone was then removed from the remaining femoral head. Next, using a corkscrew the femoral head was removed from the acetabulum. On gross visual inspection, the femoral head had complete loss of articular cartilage and multiple periarticular osteophytes. The femoral head was then measured. Attention was then turned to the acetabulum. The acetabulum was exposed and any remaining labrum was excised. Sequential reaming of the acetabulum was performed using fluoroscopic guidance until there was a good bed of bleeding cancellus bone. When the appropriate size was reached, a trial was then placed. The position and fit of the trial was checked with fluoroscopy. The trial was then removed. Then, using fluoroscopic guidance, the final implant was impacted at 20 of anteversion and 40 of abduction, and fully seated in the acetabulum. 2 screws were then placed in the acetabulum. Again fluoroscopy was used to check position of the screws. Next, the liner was then impacted, with a 20 elevated liner located in the anterior superior quadrant. Component locking was confirmed. Attention was then directed to the femur. With the aid of the [place] table, the femur was externally rotated to approximately 130, extended, and adducted under the opposite leg. A side hook was then placed under the proximal femur, and the side hook elevator was used to elevate the proximal femur while releasing the capsule. Retractors were then placed. A capsular release was performed, as well as a release of the conjoined tendon, which afforded excellent visualization of the proximal femur. Next, a box osteotome was used to lateralize the proximal femur. A tailing hand was then used to locate the femoral canal. Sequential broaching was then performed with appropriate size which afforded excellent fixation in the proximal femur. A trial was then placed with appropriate head and neck, and the hip was gently reduced with the aid of the [place] table. Fluoroscopy was then used to check position of the components, as well as to ensure equal leg lengths. The hip was then gently dislocated and the trials were then removed. Final implants were then impacted and the hip was again reduced. Final fluoroscopic x-rays confirmed that the components were in anatomic position, as well as equal leg lengths. The hip was also taken through range of motion, and found to be stable. The hip was then copiously irrigated with antibiotic solution with pulsatile lavage. The hip was then irrigated with Irrisept solution. The soft tissues were then injected with a ropivacaine solution, which consisted of 246.25 mg of ropivacaine, 0.5 mg of epinephrine, 30 mg of Toradol, 80 g of clonidine, and 48.45 mL of sterile water, for a total of 100 mL of fluid injected. A second dose of 1 g of Tranexamic acid was also given intravenously. Any blood collected by Cell Saver was then returned to the patient at this time. The fascia was then closed with 2-0 strata fix suture. The subcutaneous tissue was closed with 3-0 Vicryl. The subcuticular tissue was closed with 3-0 strata fix suture. The skin was then closed with Exofin skin glue. After the glue and dried, and Optifoam silver impregnated dressing was applied. The patient was then transferred to the recovery room in stable condition. The guest services assistant JULI Patrick was required due to the complexity of surgery, and the need for skilled cardiovascular surgical tech for positioning, draping, exposure, retraction, and closure of the wound.
[2021-02-24] MEDS ORDERED: LACTATED RINGERS 1,000 ML IV ONE (10:42)
--- NOTE | 2021-02-24 11:34 | XR ---
EXAMINATION TYPE: XR Hip Limited LT DATE OF EXAM: 02/24/2021 CLINICAL HISTORY: Postoperative evaluation TECHNIQUE: Single portable view of the left hip was submitted. FINDINGS: Noted are changes of total hip arthroplasty with femoral and acetabular components appearin g well seated. Alignment is anatomic. Postsurgical soft tissue changes are evident. IMPRESSION: Satisfactory postoperative alignment
--- NOTE | 2021-02-24 12:07 | XR ---
EXAMINATION TYPE: XR Hip Limited LT, FL guidance operating room DATE OF EXAM: 02/24/2021 CLINICAL HISTORY: Postoperative evaluation TECHNIQUE: Single portable view of the left hip was submitted. FINDINGS: Noted are changes of total hip arthroplasty with femoral and acetabular components appearin g well seated. Alignment is anatomic. Postsurgical soft tissue changes are evident. IMPRESSION: Satisfactory postoperative alignment
[2021-02-24] MEDS: HYDROmorphone 0.5 MG/0.5 ML SYRINGE IVP PRN ×2 (14:00→14:05)
[2021-02-24] MEDS ORDERED: SODIUM CHLORIDE 0.9% 1,000 ML IV ONE ×2 (16:19→23:04)
[2021-02-24] MEDS ORDERED: LEVOTHYROXINE 125 MCG TAB PO SCH (16:30)
[2021-02-24] MEDS: HYDROcodone/APAP 7.5-325MG 1 EACH TAB PO PRN ×2 (17:55→23:41)
[2021-02-24] MEDS: SENNOSIDES-DOCUSATE SODIUM 1 EACH TAB PO SCH (20:48)
[2021-02-24] MEDS: ASPIRIN 325 MG TAB PO SCH (20:48)
[2021-02-24 22:55] LABS: Basophils % (A) 0 %; Eosinophils # (A) 0.2 k/uL (0-0.7); Eosinophils % (A) 2 %; HCT 34.2 % (34.0-46.0); HGB 11.8 gm/dL (11.4-16.0); Lymphocytes # (A) 1.1 k/uL (1.0-4.8); Lymphocytes % (A) 7 %; MCH 32.4 pg (25.0-35.0); MCHC 34.4 g/dL (31.0-37.0); MCV 94.2 fL (80.0-100.0); Mean Platelet Volume 6.9; Monocytes # (A) 0.5 k/uL (0-1.0); Monocytes % (A) 4 %; Neutrophils # (A) 12.5 k/uL (1.3-7.7); Neutrophils % (A) 87 %; Platelet Count 221 k/uL (150-450); RBC 3.63 m/uL (3.80-5.40); RDW 12.5 % (11.5-15.5); WBC 14.4 k/uL (3.8-10.6)
[2021-02-24 23:11] LABS: ALT 29 U/L (4-34); AST 52 U/L (14-36); African American GFR (CKD) >90 (>60 ml/min/1.73 sqM); Albumin 3.3 g/dL (3.5-5.0); Albumin/Globulin Ratio 1.5; Alkaline Phosphatase 35 U/L (38-126); Anion Gap 9 mmol/L; Blood Urea Nitrogen 12 mg/dL (7-17); Calcium 8.2 mg/dL (8.4-10.2); Carbon Dioxide 18 mmol/L (22-30); Chloride 102 mmol/L (98-107); Globulin 2.2 g/dL; Glucose 138 mg/dL (74-99); Non-African American GFR(CKD) >90 (>60 ml/min/1.73 sqM); Sodium 129 mmol/L (137-145); Total Protein 5.5 g/dL (6.3-8.2)
[2021-02-24 23:24] LABS: Potassium 4.3 mmol/L (3.5-5.1)
[2021-02-24] MEDS: SODIUM CHLORIDE 0.9% 1,000 ML IV SCH (23:36)
[2021-02-25] MEDS: LEVOTHYROXINE 125 MCG TAB PO SCH (06:01)
[2021-02-25] MEDS: HYDROcodone/APAP 7.5-325MG 1 EACH TAB PO PRN ×4 (06:13→18:06)
[2021-02-25] MEDS: ATORVASTATIN 10 MG TAB PO SCH (08:40)
[2021-02-25] MEDS: ASPIRIN 325 MG TAB PO SCH ×2 (08:40→20:13)
[2021-02-25] MEDS: MELOXICAM 7.5 MG TAB PO SCH (08:41)
[2021-02-25 09:05] LABS: Basophils # (A) 0.02 X 10*3/uL (0.00-0.10); Basophils % (A) 0.2 %; Eosinophils # (A) 0.01 X 10*3/uL (0.04-0.35); Eosinophils % (A) 0.1 %; HCT 28.9 % (37.2-46.3); HGB 9.9 g/dL (12.0-15.0); Lymphocytes # (A) 1.81 X 10*3/uL (0.90-5.00); Lymphocytes % (A) 16.2 %; MCH 32.1 pg (27.0-32.0); MCHC 34.3 g/dL (32.0-37.0); MCV 93.8 fL (80.0-97.0); Mean Platelet Volume 9.9 fL (9.5-12.2); Monocytes # (A) 1.21 X 10*3/uL (0.20-1.00); Monocytes % (A) 10.8 %; Neutrophils # (A) 8.02 X 10*3/uL (1.80-7.70); Neutrophils % (A) 71.9 %; Platelet Count 223 X 10*3/uL (140-440); RBC 3.08 X 10*6/uL (4.10-5.20); RDW 12.8 % (11.5-14.5); WBC 11.16 X 10*3/uL (4.50-10.00)
--- NOTE | 2021-02-25 09:11 | P.PN ---
Subjective Progress Note Date: 02/25/21 This is a 80-year-old female who is status post left total hip arthroplasty. This is postoperative day #1 and patient is seen and evaluated at bedside with Dr. Emigdio Cleary. Patient states that she has felt lightheaded off and on today when working with physical therapy. Patient states that her pain is fairly well controlled. Patient denies any fever/chills, numbness, weakness, tin gling, abdominal pain, shortness of breath or chest pain. Objective - Vital Signs Vital signs: Vital Signs Temp 98.6 F 02/25/21 07:07 Pulse 81 02/25/21 07:07 Resp 16 02/25/21 07:07 BP 132/73 02/25/21 08:26 Pulse Ox 85 L 02/25/21 07:20 Intake & Output 02/24/21 02/25/21 02/25/21 18:59 06:59 18:59 Intake Total 1751 2215 Output Total 200 200 Balance 1551 2014 Weight 87 kg Intake: IV 1751 Intake, IV Titration 1675 Amount Sodium Chloride 0.9% 1, 625 000 ml @ 125 mls/hr IV . Q8H [facility] Rx#:[id number] Sodium Chloride 0.9% 1, 1000 000 ml @ 999 mls/hr IV . Q1H1M ONE Rx#:[id number] ceFAZolin 2 gm In Sodium 50 Chloride 0.9% 50 ml @ 100 mls/hr IVPB Q8H [facility] Rx#: [id number] Oral 540 Output: Urine 200 Estimated Blood Loss 200 Other: Voiding Method Toilet - Exam Vital signs are stable. Patient is in no acute distress and is alert and oriented 3. Calf is soft and nontender to palpation. Dressing is clean, dry, and intact. Patient has full foot and ankle motion without pain or difficulty. Sensation intact. Neurovascular status and circulatory status are intact. - Labs CBC & Chem 7: 02/25/21 06:50 02/24/21 22:44 Labs: Abnormal Lab Results - Last 24 Hours (Table) 02/24/21 02/24/21 02/25/21 Range/Units 22:44 22:44 06:50 WBC 14.4 H 11.16 H (3.8-10.6) k/uL RBC 3.63 L 3.08 L (3.80-5.40) m/uL Hgb 9.9 L (12.0-15.0) g/dL Hct 28.9 L (37.2-46.3) % MCH 32.1 H (27.0-32.0) pg Immature Gran # 0.09 H (0.00-0.04) X 10*3/uL Neutrophils # 12.5 H 8.02 H (1.3-7.7) k/uL Monocytes # 1.21 H (0.20-1.00) X 10*3/uL Eosinophils # 0.01 L (0.04-0.35) X 10*3/uL Sodium 129 L (137-145) mmol/L Carbon Dioxide 18 L (22-30) mmol/L Glucose 138 H (74-99) mg/dL Calcium 8.2 L (8.4-10.2) mg/dL AST 52 H (14-36) U/L Alkaline Phosphatase 35 L (38-126) U/L Total Protein 5.5 L (6.3-8.2) g/dL Albumin 3.3 L (3.5-5.0) g/dL Assessment and Plan (1) Osteoarthritis of left hip Current Visit: Yes Status: Acute Code(s): M16.12 - UNILATERAL PRIMARY OSTEOARTHRITIS, LEFT HIP SNOMED Code(s): 447153225518316 (2) S/P total hip arthroplasty Current Visit: Yes Status: Acute Code(s): Z96.649 - PRESENCE OF UNSPECIFIED ARTIFICIAL HIP JOINT SNOMED Code(s): 974550796523 Plan: Continue routine postop care and pain control. Recorded blood pressures are stable. Continue DVT prophylaxis with aspirin. Weightbearing as tolerated with a walker. Leave dressing in place for 7 days. Appreciate input from medicine. Anticipate discharge home with homecare tomorrow.
[2021-02-25 09:53] LABS: African American GFR (CKD) >90 (>60 ml/min/1.73 sqM); Anion Gap 6 mmol/L; Blood Urea Nitrogen 11 mg/dL (7-17); Calcium 8.1 mg/dL (8.4-10.2); Carbon Dioxide 20 mmol/L (22-30); Chloride 102 mmol/L (98-107); Glucose 110 mg/dL (74-99); Non-African American GFR(CKD) >90 (>60 ml/min/1.73 sqM); Potassium 3.9 mmol/L (3.5-5.1); Sodium 128 mmol/L (137-145)
[2021-02-25] MEDS: FERROUS SULFATE 325 MG TAB PO SCH ×2 (11:57→18:06)
[2021-02-25] MEDS: SODIUM CHLORIDE 0.9% 1,000 ML IV SCH ×2 (11:59→16:22)
--- NOTE | 2021-02-25 13:42 | P.CONS ---
History of Present Illness - Reason for Consult Consult date: 02/25/21 medical management - History of Present Illness HISTORY OF PRESENT ILLNESS This is a 80-year-old female patient of Dr. Boaz Vyas with past medical history of hypertension, hyperlipidemia, osteoarthritis, thyroid cancer status post thyroidectomy, migraine headaches. Patient has been brought into the hospital on the care of Dr. Emigdio Cleary status post left total hip arthroplasty with anterior approach. Patient had low blood pressure last evening and required boluses 2 and continues on IV fluids at 125 mL/h. Stat blood work was done this morning revealed a hemoglobin of 9.9 which patient was 14.5 preoperatively. WBC went from 14.4 down to 11.1. Platelet count is 223. Sodium 128, potassium 3.9, chloride 102, CO2 20, BUN 11 creatinine 0.52. Blood sugar 100. Calcium 8.1. AST 52, ALT 29, alkaline phosphatase 35. Orthostatics were done this morning which came back negative. Pulse ox is 95% on room air but there was one reading of 85% during the night. Blood pressures improved and stable. Plan to continue IV fluids for now and discontinue in 24 hours. Patient is eating at least 50% of her meals. REVIEW OF SYSTEMS Constitutional: No fever, no chills, no night sweats. No weight change. No weakness, fatigue or lethargy. No daytime sleepiness. EENT: No headache. No blurred vision or double vision, no loss of vision. No loss of Hearing, no ringing in the ears, no dizziness. No nasal drainage or congestion. No epistaxis. No sore throat. Lungs: No shortness of breath, cough, no sputum production. No wheezing. Cardiovascular: No chest pain, no lower extremity edema. No palpitations. No paroxysmal nocturnal dyspnea. No orthopnea. Reports lightheadedness or dizziness. No syncopal episodes. Abdominal: No abdominal pain. No nausea, vomiting. No diarrhea. No constipation. No bloody or tarry stools.. No loss of appetite. Genitourinary: No dysuria, increased frequency, urgency. No urinary retention. Musculoskeletal: No myalgias. No muscle weakness, no gait dysfunction, no frequent falls. No back pain. No neck pain. Mild left hip discomfort. Integumentary: No wounds, no lesions. No rash or pruritus. No unusual bruising. No change in hair or nails. Neurologic: No aphasia. No facial droop. No change in mentation. No head injury. No headache. No paralysis. No paresthesia. Psychiatric: No depression. No anxiety. No mood swings. Endocrine: No abnormal blood sugars. No weight change. No excessive sweating or thirst. No cold intolerance. SOCIAL HISTORY Patient is a lifelong nonsmoker but did have exposure to secondhand smoke with bolster her 's. Patient drinks 2 glasses of wine each night. She lives at home alone and son will be staying with her initially. FAMILY HISTORY Mother had history of breast cancer and colon cancer and Vignesh's. Father had history of coronary artery disease. Patient has one brother with history of oral cancer and was a heavy alcohol abuser and smoker. Patient has one sister with Vignesh's. PHYSICAL EXAMINATION Gen: This is a 80-year-old female. She is resting in recliner and appears to be comfortable and in no acute distress. HEENT: Head is atraumatic, normocephalic. Pupils equal, round. Sclerae is anicteric. NECK: Supple. No JVD. No lymphadenopathy. No thyromegaly. LUNGS: Clear to auscultation. No wheezes or rhonchi. No intercostal retractions. HEART: Regular rate and rhythm. No murmur. ABDOMEN: Soft. Bowel sounds are present. No masses. No tenderness. EXTREMITIES: No pedal edema. No calf tenderness. Small dressing in place to the left hip area. There is swelling at the surgical site. No signs of infection NEUROLOGICAL: Patient is awake, alert and oriented x3. Cranial nerves 2 through 12 are grossly intact. ASSESSMENT AND PLAN 1. Osteoarthritis status post left total hip arthroplasty, postop day #1. Continue current pain management, PT and OT per orthopedics, continue incentive spirometry to reduce incidence of atelectasis and hospital-acquired pneumonia. 2. Acute blood loss anemia, stable, postop. Continue to monitor. Patient started on ferrous sulfate. 3. Postop hypotension. Patient is status post 2 boluses of IV fluids, continue IV fluids at 125 mL per hour for 24 hours. 4. Hypertension. Hold hydrochlorothiazide 25 mg daily and hold losartan 50 mg daily. 5. History of thyroid cancer with hypothyroidism. Continue levothyroxine 125 g Wednesday through Wednesday. 6. Hyperlipidemia, stable. 7. GI prophylaxis. Protonix. 8. DVT prophylaxis. Patient is on aspirin 325 mg oral twice daily. DISCHARGE PLAN Home with [facility]. Impression and plan of care have been directed as dictated by the signing physician. Terri Bell nurse practitioner acting as scribe for signing physician. Past Medical History Past Medical History: Cancer, Hyperlipidemia, Hypertension, Osteoarthritis (OA), Thyroid Disorder Additional Past Medical History / Comment(s): hx migraines, hx thyroid cancer, hx kidney stone, History of Any Multi-Drug Resistant Organisms: None Reported Past Surgical History: Tonsillectomy Additional Past Surgical History / Comment(s): thyroidectomy, maria eugenia cataracts,right total hip arthroplasty, left total hip arthroplasty Past Anesthesia/Blood Transfusion Reactions: Motion Sickness Additional Past Anesthesia/Blood Transfusion Reaction / Comm: no hx blood transfusion Past Psychological History: Anxiety Smoking Status: Never smoker Past Alcohol Use History: Daily Additional Past Alcohol Use History / Comment(s): 2 glasses of wine most days-drinks approx 14 drinks per week Past Drug Use History: None Reported - Past Family History Mother Family Medical History: Cancer Additional Family Medical History / Comment(s): colon ,breast Brother(s) Family Medical History: Cancer Additional Family Medical History / Comment(s): throat cancer Medications and Allergies Home Medications Medication Instructions Recorded Confirmed Type Acetaminophen [Tylenol Extra 1,000 mg PO BID PRN 04/16/20 02/24/21 History Strength] Ibuprofen [Advil] 200 mg PO Q8HR PRN 04/16/20 02/24/21 History Levothyroxine Sodium [Levoxyl] 125 mcg PO MOTUWETHFRSA 04/16/20 02/24/21 History Losartan Potassium [Cozaar] 50 mg PO QAM 04/16/20 02/24/21 History Simvastatin [Zocor] 20 mg PO DAILY 04/16/20 02/24/21 History hydroCHLOROthiazide [Hydrodiuril] 12.5 mg PO DAILY 04/16/20 02/24/21 History Aspirin 325 mg PO BID #60 tab 02/24/21 Rx HYDROcodone/APAP 7.5-325MG [Buhl 1 - 2 tab PO Q6H PRN #32 tab 02/24/21 Rx 7.5-325] Ondansetron Odt [Zofran Odt] 1 tab PO Q8HR PRN #10 tab 02/24/21 Rx Sennosides [Senokot] 2 tab PO DAILY PRN #60 tablet 02/24/21 Rx Allergies Allergy/AdvReac Type Severity Reaction Status Date / Time cat dander Allergy Unknown Verified 02/24/21 08:22 Penicillins Allergy Rash/Hives Verified 02/24/21 08:22 Sulfa (Sulfonamide Allergy Unknown Verified 02/24/21 08:22 Antibiotics) Childhood Physical Exam Vitals: Vital Signs Temp Pulse Resp BP BP BP BP 02/25/21 08:26 132/73 130/72 118/73 02/25/21 07:20 02/25/21 07:07 98.6 F 81 16 123/68 02/25/21 01:24 98.6 F 73 16 107/65 02/24/21 23:44 97.8 F 79 16 123/68 02/24/21 22:59 64 84/68 02/24/21 22:30 97.7 F 64 16 104/63 02/24/21 19:56 97.7 F 79 16 97/62 02/24/21 17:50 69 115/68 02/24/21 16:14 98/62 02/24/21 16:02 62 79/52 81/52 02/24/21 15:10 97.8 F 71 16 93/58 02/24/21 14:00 68 16 108/59 02/24/21 13:45 61 16 107/56 02/24/21 13:15 63 14 105/59 02/24/21 12:45 62 16 97/53 02/24/21 12:15 64 16 97/54 02/24/21 12:00 60 18 103/53 02/24/21 11:45 57 L 16 103/53 02/24/21 11:30 59 L 16 98/55 02/24/21 11:15 60 16 98/50 02/24/21 11:00 61 16 93/54 02/24/21 10:47 99.5 F 64 16 91/54 Pulse Ox 02/25/21 08:26 02/25/21 07:20 85 L 02/25/21 07:07 94 L 02/25/21 01:24 91 L 02/24/21 23:44 95 02/24/21 22:59 93 L 02/24/21 22:30 95 02/24/21 19:56 92 L 02/24/21 17:50 02/24/21 16:14 02/24/21 16:02 96 02/24/21 15:10 92 L 02/24/21 14:00 98 02/24/21 13:45 99 02/24/21 13:15 97 02/24/21 12:45 98 02/24/21 12:15 97 02/24/21 12:00 93 L 02/24/21 11:45 94 L 02/24/21 11:30 99 02/24/21 11:15 98 02/24/21 11:00 97 02/24/21 10:47 93 L Intake and Output 02/24/21 02/25/21 02/25/21 22:59 06:59 14:59 Intake Total 2215 Output Total 200 Balance 2014 Intake: Intake, IV Titration 1675 Amount Sodium Chloride 0.9% 1, 625 000 ml @ 125 mls/hr IV . Q8H [facility] Rx#:[id number] Sodium Chloride 0.9% 1, 1000 000 ml @ 999 mls/hr IV . Q1H1M ONE Rx#:[id number] ceFAZolin 2 gm In Sodium 50 Chloride 0.9% 50 ml @ 100 mls/hr IVPB Q8H [facility] Rx#: [id number] Oral 540 Output: Urine 200 Other: Voiding Method Toilet Weight 87 kg Results CBC & Chem 7: 02/25/21 06:50 02/25/21 06:50 Labs: Abnormal Lab Results - Last 24 Hours (Table) 02/24/21 02/24/21 02/25/21 Range/Units 22:44 22:44 06:50 WBC 14.4 H 11.16 H (3.8-10.6) k/uL RBC 3.63 L 3.08 L (3.80-5.40) m/uL Hgb 9.9 L (12.0-15.0) g/dL Hct 28.9 L (37.2-46.3) % MCH 32.1 H (27.0-32.0) pg Immature Gran # 0.09 H (0.00-0.04) X 10*3/uL Neutrophils # 12.5 H 8.02 H (1.3-7.7) k/uL Monocytes # 1.21 H (0.20-1.00) X 10*3/uL Eosinophils # 0.01 L (0.04-0.35) X 10*3/uL Sodium 129 L (137-145) mmol/L Carbon Dioxide 18 L (22-30) mmol/L Glucose 138 H (74-99) mg/dL Calcium 8.2 L (8.4-10.2) mg/dL AST 52 H (14-36) U/L Alkaline Phosphatase 35 L (38-126) U/L Total Protein 5.5 L (6.3-8.2) g/dL Albumin 3.3 L (3.5-5.0) g/dL
[2021-02-25 18:37] LABS: Glucose,Whole Blood 93 mg/dL (75-99)
[2021-02-25] MEDS: SENNOSIDES-DOCUSATE SODIUM 1 EACH TAB PO SCH (20:13)
[2021-02-26 02:30] VITALS: RESP 16
[2021-02-26] MEDS: SODIUM CHLORIDE 0.9% 1,000 ML IV SCH (02:33)
[2021-02-26] MEDS: LEVOTHYROXINE 125 MCG TAB PO SCH (05:30)
[2021-02-26] MEDS ORDERED: PANTOPRAZOLE 40 MG TABLET PO SCH (07:30)
--- NOTE | 2021-02-26 07:32 | P.DS ---
Providers Date of admission: 02/25/21 11:48 Expected date of discharge: 02/26/21 Attending physician: Emigdio Cleary Consults: 02/24/21 09:16 Consult Physician Routine Consulting Provider: Boaz Vyas Consult Reason/Comments: medical management Do you want consulting provider notified?: Yes 02/24/21 16:11 Consult Physician Routine Consulting Provider: Buddy Ervin Consult Reason/Comments: medical management Do you want consulting provider notified?: Already Contacted Primary care physician: Boaz Vyas - Discharge Diagnosis(es) (1) Osteoarthritis of left hip Current Visit: Yes Status: Acute (2) S/P total hip arthroplasty Current Visit: Yes Status: Acute Hospital Course: This is a 80-year-old female with known history of degenerative arthritis of the left hip with direct anterior approach. The patient presents for evaluation. After discussion and consideration patient elects to proceed with total hip arthroplasty. The patient is seen preoperatively by her primary care physician and cleared for surgery. Patient is admitted to [facility] on 02/24/2021 for total hip arthroplasty with direct anterior approach. The procedures performed without complication or sequelae. The patient is doing well postoperatively. Labs and vital signs are stable on day of discharge. On day of discharge patient's hip incision is healing well. There is minimal erythema. There is no drainage noted at this time. There is minimal soft tissue swelling to the hip and thigh. Patient has full foot and ankle motion without difficulty or pain. Neurovascular status to the left lower extremity is intact. Patient is discharged to home in good condition. Please see med rec for accurate list of home medications. Patient Condition at Discharge: Good Plan - Discharge Summary Discharge Rx Participant: No New Discharge Prescriptions: New Sennosides [Senokot] 2 tab PO DAILY PRN #60 tablet PRN Reason: Constipation Aspirin 325 mg PO BID #60 tab HYDROcodone/APAP 7.5-325MG [[place] 7.5-325] 1 - 2 tab PO Q6H PRN #32 tab PRN Reason: Pain Ondansetron Odt [Zofran Odt] 1 tab PO Q8HR PRN #10 tab PRN Reason: Nausea No Action hydroCHLOROthiazide [Hydrodiuril] 12.5 mg PO DAILY Losartan Potassium [Cozaar] 50 mg PO QAM Levothyroxine Sodium [Levoxyl] 125 mcg PO MOTUWETHFRSA Simvastatin [Zocor] 20 mg PO DAILY Ibuprofen [Advil] 200 mg PO Q8HR PRN PRN Reason: Pain Acetaminophen [Tylenol Extra Strength] 1,000 mg PO BID PRN PRN Reason: Pain Discharge Medication List Acetaminophen [Tylenol Extra Strength] 1,000 mg PO BID PRN 04/16/20 [History] Ibuprofen [Advil] 200 mg PO Q8HR PRN 04/16/20 [History] Levothyroxine Sodium [Levoxyl] 125 mcg PO MOTUWETHFRSA 04/16/20 [History] Losartan Potassium [Cozaar] 50 mg PO QAM 04/16/20 [History] Simvastatin [Zocor] 20 mg PO DAILY 04/16/20 [History] hydroCHLOROthiazide [Hydrodiuril] 12.5 mg PO DAILY 04/16/20 [History] Aspirin 325 mg PO BID #60 tab 02/24/21 [Rx] HYDROcodone/APAP 7.5-325MG [[place] 7.5-325] 1 - 2 tab PO Q6H PRN #32 tab 02/24/21 [Rx] Ondansetron Odt [Zofran Odt] 1 tab PO Q8HR PRN #10 tab 02/24/21 [Rx] Sennosides [Senokot] 2 tab PO DAILY PRN #60 tablet 02/24/21 [Rx] Follow up Appointment(s)/Referral(s): [facility], [NON-STAFF] - As Needed Emigdio Cleary DO [Doctor of Osteopathic Medicine] - 2 Weeks Boaz Vyas MD [Primary Care Provider] - 1 Week Activity/Diet/Wound Care/Special Instructions: Weightbearing as tolerated with walker. Leave dressing intact. Dressing may be removed by home care nurse or by patient in 7 days. Then change dressing twice daily until follow up. May shower with initial dressing intact and after removal. If dressing become saturated, please remove. Please take aspirin 325mg twice daily for 30 days to prevent blood clots. Recommend use of compression stockings daily until follow up to help prevent swelling and blood clots. May remove at night before sleeping. Please follow-up with [facility] in 2 weeks and call with any questions or concerns, . Discharge Disposition: HOME WITH HOME HEALTH SERVICES
[2021-02-26 07:44] VITALS: BP 134/72; PULSE 86; TEMP 99.5
[2021-02-26] MEDS: HYDROcodone/APAP 7.5-325MG 1 EACH TAB PO PRN (08:04)
[2021-02-26] MEDS: MELOXICAM 7.5 MG TAB PO SCH (08:04)
[2021-02-26] MEDS: ASPIRIN 325 MG TAB PO SCH (08:04)
[2021-02-26] MEDS: FERROUS SULFATE 325 MG TAB PO SCH (08:05)
[2021-02-26] MEDS: ATORVASTATIN 10 MG TAB PO SCH (08:05)
--- NOTE | 2021-02-26 09:18 | P.PN ---
Subjective Progress Note Date: 02/26/21 HISTORY OF PRESENT ILLNESS This is a 80-year-old female patient of Dr. Boaz Vyas with past medical history of hypertension, hyperlipidemia, osteoarthritis, thyroid cancer status post thyroidectomy, migraine headaches. Patient has been brought into the hospital on the care of Dr. Emigdio Cleary status post left total hip arthroplasty with anterior approach. Patient had low blood pressure last evening and required boluses 2 and continues on IV fluids at 125 mL/h. Stat blood work was done this morning revealed a hemoglobin of 9.9 which patient was 14.5 preoperatively. WBC went from 14.4 down to 11.1. Platelet count is 223. Sodium 128, potassium 3.9, chloride 102, CO2 20, BUN 11 creatinine 0.52. Blood sugar 100. Calcium 8.1. AST 52, ALT 29, alkaline phosphatase 35. Orthostatics were done this morning which came back negative. Pulse ox is 95% on room air b ut there was one reading of 85% during the night. Blood pressures improved and stable. Plan to continue IV fluids for now and discontinue in 24 hours. Patient is eating at least 50% of her meals. 02/26: Patient's pain is well controlled. She is working with physical therapy and doing well. She denies any chest pain, shortness of breath, lightheadedness or dizziness. Patient has been afebrile, heart rate 86, blood pressure 134/72, pulse ox 93% on room air. Sodium level is improved today. Repeat blood work reveals sodium of 133, potassium 3.6, chloride 103, CO2 22, BUN 7 and creatinine 0.5. Blood sugar 138. Calcium 8.1. She is reaching 2500 on incentive spirometry. Medication reconciliation reviewed and patient is cleared for discharge from medicine. Hydrochlorothiazide will be discontinued but will resume losartan at discharge. REVIEW OF SYSTEMS Constitutional: No fever, no chills, no night sweats. No weight change. No weakness, fatigue or lethargy. No daytime sleepiness. EENT: No headache. No blurred vision or double vision, no loss of vision. No loss of Hearing, no ringing in the ears, no dizziness. No nasal drainage or congestion. No epistaxis. No sore throat. Lungs: No shortness of breath, cough, no sputum production. No wheezing. Cardiovascular: No chest pain, no lower extremity edema. No palpitations. No paroxysmal nocturnal dyspnea. No orthopnea. Reports lightheadedness or dizziness. No syncopal episodes. Abdominal: No abdominal pain. No nausea, vomiting. No diarrhea. No constipation. No bloody or tarry stools.. No loss of appetite. Genitourinary: No dysuria, increased frequency, urgency. No urinary retention. Musculoskeletal: No myalgias. No muscle weakness, no gait dysfunction, no frequent falls. No back pain. No neck pain. Mild left hip discomfort. Integumentary: No wounds, no lesions. No rash or pruritus. No unusual bruising. No change in hair or nails. Neurologic: No aphasia. No facial droop. No change in mentation. No head injury. No headache. No paralysis. No paresthesia. Psychiatric: No depression. No anxiety. No mood swings. Endocrine: No abnormal blood sugars. No weight change. No excessive sweating or thirst. No cold intolerance. PHYSICAL EXAMINATION Gen: This is a 80-year-old female. She is resting in recliner and appears to be comfortable and in no acute distress. HEENT: Head is atraumatic, normocephalic. Pupils equal, round. Sclerae is anicteric. NECK: Supple. No JVD. No lymphadenopathy. No thyromegaly. LUNGS: Clear to auscultation. No wheezes or rhonchi. No intercostal retractions. HEART: Regular rate and rhythm. No murmur. ABDOMEN: Soft. Bowel sounds are present. No masses. No tenderness. EXTREMITIES: No pedal edema. No calf tenderness. Small dressing in place to the left hip area. There is swelling at the surgical site. No signs of infection NEUROLOGICAL: Patient is awake, alert and oriented x3. Cranial nerves 2 through 12 are grossly intact. ASSESSMENT AND PLAN 1. Osteoarthritis status post left total hip arthroplasty, postop day #2. Continue current pain management, PT and OT per orthopedics, continue incentive spirometry to reduce incidence of atelectasis and hospital-acquired pneumonia. 2. Acute blood loss anemia, stable, postop. Continue to monitor. Patient star krystle on ferrous sulfate. 3. Postop hypotension. Patient is status post 2 boluses of IV fluids, dis continue IV fluids. 4. Hypertension. Hold hydrochlorothiazide 25 mg daily and hold losartan 50 mg daily. 5. History of thyroid cancer with hypothyroidism. Continue levothyroxine 125 g Wednesday through Wednesday. 6. Hyperlipidemia, stable. 7. GI prophylaxis. Protonix. 8. DVT prophylaxis. Patient is on aspirin 325 mg oral twice daily. DISCHARGE PLAN Home with [facility]. Impression and plan of care have been directed as dictated by the signing physician. Terri Bell nurse practitioner acting as scribe for signing physician. Objective - Vital Signs Vital signs: Vital Signs Temp 99.5 F 02/26/21 07:44 Pulse 86 02/26/21 08:10 Resp 16 02/26/21 08:10 BP 134/72 02/26/21 07:44 Pulse Ox 93 L 02/26/21 07:44 Intake & Output 02/25/21 02/26/21 02/26/21 18:59 06:59 18:59 Intake Total 220 1080 Balance 220 1080 Intake: Intake, IV Titration 1080 Amount Sodium Chloride 0.9% 1, 1080 000 ml @ 125 mls/hr IV . Q8H KASHMIR Rx#:[id number] Oral 220 Other: Voiding Method Toilet Toilet # Voids 2 - Labs CBC & Chem 7: 02/25/21 06:50 02/26/21 06:40 Labs: Abnormal Lab Results - Last 24 Hours (Table) 02/25/21 Range/Units 06:50 Sodium 128 L (137-145) mmol/L Carbon Dioxide 20 L (22-30) mmol/L Glucose 110 H (74-99) mg/dL Calcium 8.1 L (8.4-10.2) mg/dL
[2021-02-26 13:14] LABS: African American GFR (CKD) 106.7 (60.0-200.0); Anion Gap 7.8 mmol/L (4.00-12.00); Calcium 8.1 mg/dL (8.7-10.3); Carbon Dioxide 22.2 mmol/L (21.6-31.8); Non-African American GFR(CKD) 92.1 (60.0-200.0); Potassium 3.6 mmol/L (3.5-5.5)
--- NOTE | 2021-02-27 12:04 | CDI ---
Documentation Clarification Form Date: 02/27/21 From: Adrienne Mccullough Admit Date: 02/25/2021 11:48:00 AM Patient Name: Raquel Sparrow Visit Number: [id number] Discharge Date: 02/26/2021 10:39:00 AM ATTENTION: The Clinical Documentation Specialists (CDI) and [facility] Coding Staff appreciate your assistance in clarifying documentation. Please respond to the clarification below the line at the bottom and electronically sign. The CDI & [facility] Coding staff will review the response and follow-up if needed. Please note: Queries are made part of the Legal Health Record. If you have any questions, please contact the author of this message via ITS. Dr. Emigdio Cleary, There is documentation of postop hypotension in Dr Ervin's consult and PN. Since you are attending physician, Additional clarification is requested. History/Risk Factors: s/p left hip replacement, acute blood loss anemia, mixed HLD, HTN Clinical Indicators: Patient placed in outpatient surgery on 02/24. She was subsequently converted to inpatient on 02/25. Dr Ervin's consult documents "Postop hypotension. Patient is status post 2 boluses of IV fluids, continue IV fluids at 125 mL per hour for 24 hours." Treatment: 2 boluses of IV fluids, continue IV fluids at 125 mL per hour for 24 hours. Can you please clarify the reason for inpatient admission following surgery? [ ] Postop hypotension [ ] Other, please specify [ ] Unable to determine Unable to determine MTDD
== END 2021-02-26 10:39 | disposition home health service (06) | DRG 470 ==
LOC: OR 08:01 → 4SSUR 14:44 → OR 02-25 11:48 → 4SSUR 02-26 00:05
PROVIDERS: ADMIT Orthopaedic Surgery; ATTEND Orthopaedic Surgery
PROC: 0SRB06A Replacement of Left Hip Joint with Oxidized Zirconium on Polyethylene Synthetic Substitute, Uncemented, Open Approach (ICD-10-PCS; principal; 2021-02-24 09:10)
DX: M16.12 Unilateral primary osteoarthritis, left hip (principal); D62 Acute posthemorrhagic anemia; I95.81 Postprocedural hypotension; Z85.850 Personal history of malignant neoplasm of thyroid; E78.2 Mixed hyperlipidemia; I10 Essential (primary) hypertension; E89.0 Postprocedural hypothyroidism; Z77.22 Contact with and (suspected) exposure to environmental tobacco smoke (acute) (chronic); E66.9 Obesity, unspecified; Z68.32 Body mass index [BMI] 32.0-32.9, adult; Z79.890 Hormone replacement therapy; Z79.899 Other long term (current) drug therapy; Z87.442 Personal history of urinary calculi; Z86.69 Personal history of other diseases of the nervous system and sense organs; Z96.641 Presence of right artificial hip joint; Z98.42 Cataract extraction status, left eye; Z98.41 Cataract extraction status, right eye; Z90.89 Acquired absence of other organs; Z98.890 Other specified postprocedural states; Z88.0 Allergy status to penicillin; Z88.2 Allergy status to sulfonamides; Z91.048 Other nonmedicinal substance allergy status; Z80.3 Family history of malignant neoplasm of breast; Z80.0 Family history of malignant neoplasm of digestive organs; Z82.49 Family history of ischemic heart disease and other diseases of the circulatory system; Z80.8 Family history of malignant neoplasm of other organs or systems; Z81.1 Family history of alcohol abuse and dependence; Z81.2 Family history of tobacco abuse and dependence
CPT/HCPCS: 73501; 80048; 80053; 83605; 85025; 86850; 86891; 86900; 86901; 88305; 88311; 94760

== ENCOUNTER → 2022-03-24 | Outpatient (CLI) | payer MEDICARE ==
--- NOTE | 2022-03-24 13:49 | MM ---
Reason for Exam: Screening (asymptomatic). Last mammogram was performed 1 year(s) and 11 month(s) ago. Patient History: Menarche at age 11. Patient has no children. Postmenopausal. 2000, Benign Lumpectomy on the left side. Maternal aunt had breast cancer, age 70. Mother had breast cancer, age 86. Risk Values: Digna 5 year model risk: 3.5%. NCI Lifetime model risk: 5.4%. Prior Study Comparison: 12/16/2017 Screening Mammogram, [facility]. 03/07/2019 Screening Mammogram, [facility]. 04/18/2020 Bilateral Screening Mammogram, [facility]. Tissue Density: The breast tissue is heterogeneously dense. This may lower the sensitivity of mammography. Findings: Analyzed By CAD. New spiculated mass upper outer right breast 14 cm from the nipple measuring approximately 1.5 cm is highly suspicious for malignancy. Ultrasound is advised. No distinct mass left breast. Benign calcifications seen bilaterally. Overall Assessment: Incomplete: need additional imaging evaluation, BI-RAD 0 Management: Diagnostic Mammogram of the right breast. A clinical breast exam by your physician is recommended on an annual basis and results should be correlated with mammographic findings. Electronically signed and approved by: Moi Richter M.D. Radiologis
--- NOTE | 2022-03-24 14:23 | MM ---
Reason for Exam: Additional evaluation requested from abnormal screening. Last mammogram was performed 1 year(s) and 11 month(s) ago. Patient History: Menarche at age 11. Patient has no children. Postmenopausal. 2000, Benign Lumpectomy on the left side. Maternal aunt had breast cancer, age 70. Mother had breast cancer, age 86. Risk Values: Digna 5 year model risk: 3.5%. NCI Lifetime model risk: 5.4%. Prior Study Comparison: 12/16/2017 Screening Mammogram, [facility]. 03/07/2019 Screening Mammogram, [facility]. 04/18/2020 Bilateral Screening Mammogram, [facility]. Tissue Density: Right: The breast tissue is heterogeneously dense. This may lower the sensitivity of mammography. Findings: Analyzed By CAD. Persistent spiculated mass upper outer quadrant right breast posteriorly approximately 14 cm from nipple measures an estimated 15 mm. Ultrasound is advised. Overall Assessment: Incomplete: need additional imaging evaluation, BI-RAD 0 Management: Diagnostic Breast Ultrasound of the right breast. A clinical breast exam by your physician is recommended on an annual basis and results should be correlated with mammographic findings. This exam should not preclude additional follow-up of suspicious palpable abnormalities. Results were given to the patient verbally at the time of exam. Electronically signed and approved by: Moi Richter M.D. Radiologis
--- NOTE | 2022-03-24 14:37 | USB ---
Reason for Exam: Additional evaluation requested from abnormal screening. Patient History: Menarche at age 11. Patient has no children. Postmenopausal. 2000, Benign Lumpectomy on the left side. Maternal aunt had breast cancer, age 70. Mother had breast cancer, age 86. Risk Values: Digna 5 year model risk: 3.5%. NCI Lifetime model risk: 5.4%. Technique: Method: Targeted. Patient Position: Supine. Prior Study Comparison: 12/16/2017 Screening Mammogram, [facility]. 03/07/2019 Screening Mammogram, [facility]. 04/18/2020 Bilateral Screening Mammogram, [facility]. Findings: The upper outer quadrant of the right breast and the axilla of the right breast were scanned. Spiculated mass at the 10:00 position 12 cm from the nipple measures 13 mm. No additional masses seen.. Overall Assessment: Highly suggestive of malignancy, BI-RAD 5 Management: Ultrasound Core Biopsy of the right breast. A clinical breast exam by your physician is recommended on an annual basis and results should be correlated with mammographic findings. Electronically signed and approved by: Moi Richter M.D. Radiologis
== END | disposition home or self-care (01) ==
LOC: RADMAMWWP 13:06
PROVIDERS: ATTEND Family Medicine
DX: Z12.31 Encounter for screening mammogram for malignant neoplasm of breast (principal); Z78.0 Asymptomatic menopausal state; Z80.3 Family history of malignant neoplasm of breast
CPT/HCPCS: 77067; 77065; 77063; 76642; G0279; 77061

== ENCOUNTER 2022-05-04 10:12 | Day surgery (SDC) | payer MEDICARE ==
[2022-04-30 13:59] VITALS: BMI 30.9
[~2022-05-04 10:12] MED LIST changes: -ACETAMINOPHEN TAB 500 MG TAB PO PRN; -GABAPENTIN 300 MG CAP PO PRN; +HYDROmorphone 0.5 MG/0.5 ML SYRINGE IVP PRN; +LACTATED RINGERS 1,000 ML IV SCH; +LIDOCAINE 1% (10MG/ML) FOR IV START INTRADERMA PRN; -MELOXICAM 7.5 MG TAB PO PRN; +MIDAZOLAM 2 MG/2 ML VIAL IV PRN; +Pre Op ABX Message 1 EACH MISC MISCELLANE ONE; -TRANEXAMIC ACID 1,000 MG in SODIUM CHLORIDE 0.9% 100 ML IVPB PRN
[2022-05-04] MEDS ORDERED: ALPRAZolam 0.25 MG TAB ONE (10:23)
[2022-05-04] MEDS ORDERED: ALPRAZolam 0.25 MG TAB PO ONE (10:44)
[2022-05-04] MEDS ORDERED: LIDOCAINE 1% INJ 10MG/ML (20 ML MDV) SQ ONE (12:21)
[2022-05-04] MEDS ORDERED: fentaNYL (PF) 50 MCG/ML 2 ML AMP ONE (14:19)
[2022-05-04] MEDS ORDERED: MIDAZOLAM 2 MG/2 ML VIAL ONE (14:19)
[2022-05-04] MEDS ORDERED: LIDOCAINE 2% INJ 20 MG/ML (2 ML VIAL) ONE (14:19)
[2022-05-04] MEDS ORDERED: PROPOFOL 10 MG/ML 20 ML VIAL IV ONE (14:19)
[2022-05-04] MEDS ORDERED: SODIUM CHLORIDE 0.9% 50 ML with ceFAZolin 2,000 MG IV ONE ×2 (14:30)
[2022-05-04] MEDS ORDERED: BUPIVACAIN-EPI 0.25%-1:200,000 30 ML VIAL SQ ONE ×3 (15:07)
--- NOTE | 2022-05-04 15:28 | NM ---
EXAMINATION TYPE: NM sentinel node injection DATE OF EXAM: 05/04/2022 COMPARISON: NONE HISTORY: 81-year-old female right breast cancer referred for needle localization and sentinel node in jection TECHNIQUE AND FINDINGS: The procedure of sentinel lymph node injection was explained to the patient. The benefits, alternatives, and risks were discussed. An informed consent was then obtained. Overlying skin is cleaned with sterile alcohol. Following this, 485 uCi Tc99m Tilmanocept was inject ed in the upper outer aspect of the right nipple intradermally. The patient tolerated the procedure well without any immediate complication. The patient was kept in the radiology department for short stay after the procedure and then taken to surgery for surgical p rocedure what is presumed intraoperative gamma probe will be used for sentinel lymph node detection. IMPRESSION: Right breast radiotracer injection for sentinel node localization as above.
--- NOTE | 2022-05-04 16:03 | P.OP ---
Date of Procedure: 05/04/22 Preoperative Diagnosis: Right breast cancer Postoperative Diagnosis: Right breast cancer Procedure(s) Performed: Needle localized lumpectomy with sentinel lymph node biopsy Anesthesia: ALEXIS Surgeon: Liliana Loja Estimated Blood Loss (ml): 200 Pathology: other Condition: stable Disposition: PACU Indications for Procedure: Patient presented with a core biopsy showing a breast cancer in the right breast Description of Procedure: Patient's taken the operative suite where she is prepped and draped in usual sterile manner under general endotracheal anesthetic. Dora probe was used at skin level on the right axilla to identify a maximum count. It was 35 at skin level. Local anesthetic was instilled into the skin and subcutaneous tissue. A skin incision was made. Dissection was carried out down to the sentinel lymph node. The primary node had a ex vivo count of 899. There were some secondary lymph nodes with counts 179-220. The rest of the axilla palpated unremarkably. Small bleeding points were controlled with [id number] sutures of 3-0 Vicryl or electrocautery. The skin incision was closed with 4-0 Vicryl in a subcuticular manner. Attention was then turned to the breast. A skin incision was made. Dissection was carried down into the breast tissue and the tissue around the end of the localized wire was sharply excised. The wire and tumor were at the level of the pectoralis fascia. The specimen was tagged and sent for mammography. The area of current concern does appear to have been removed. Small bleeding points are controlled with electrocautery. The lumpectomy cavity was tagged with clips. Frozen section on the sentinel lymph nodes showed no evidence of metastatic disease. The skin was closed with 4-0 Vicryl in a subcuticular manner. Steri-Strips and dressings were applied. Plan - Discharge Summary Discharge Rx Participant: No New Discharge Prescriptions: New HYDROcodone/APAP 5-325MG [[place] 5-325] 1 - 2 tab PO Q4H PRN #20 tab PRN Reason: Pain No Action Losartan Potassium [Cozaar] 50 mg PO QAM Levothyroxine Sodium [Levoxyl] 125 mcg PO MOTUWETHFRSA Simvastatin [Zocor] 20 mg PO DAILY hydroCHLOROthiazide 12.5 mg PO DAILY Discharge Medication List Levothyroxine Sodium [Levoxyl] 125 mcg PO MOTUWETHFRSA 04/16/20 [History] Losartan Potassium [Cozaar] 50 mg PO QAM 04/16/20 [History] Simvastatin [Zocor] 20 mg PO DAILY 04/16/20 [History] hydroCHLOROthiazide 12.5 mg PO DAILY 04/30/22 [History] HYDROcodone/APAP 5-325MG [[place] 5-325] 1 - 2 tab PO Q4H PRN #20 tab 05/04/22 [Rx] Follow up Appointment(s)/Referral(s): Liliana Loja DO [Doctor of Osteopathic Medicine] - 1 Week Activity/Diet/Wound Care/Special Instructions: Wear a well supporting bra. Ice to the incisions for 24-48 hours. Leave the dressings on until Wednesday. The dressings may be removed at that time and you may shower. He may take Tylenol or Motrin instead of the pain pills. Call if questions or concerns Discharge Disposition: HOME SELF-CARE
[2022-05-04 16:09] VITALS: TEMP 97
[2022-05-04 17:02] VITALS: RESP 15
[2022-05-04] MEDS ORDERED: HYDROcodone/APAP 5-325MG 1 EACH TAB PO ONE (17:07)
[2022-05-04] MEDS ORDERED: HYDROcodone/APAP 5-325MG 1 EACH TAB ONE (17:08)
[2022-05-04 17:12] VITALS: BP 146/70; PULSE 69
--- NOTE | 2022-05-11 09:59 | USB ---
Pathology Description: Location: 10 o'clock. Needle Type: 5 cm Kopan The procedure of needle localization with wire placement and than surgical excision was explained to the patient. Benefits, alternatives, and risks were discussed. An informed consent was then obtained. Given far posterior positioning, ultrasound guidance was used utilized. The shortest pathway for procedure was chosen. Shortest pathway was a lateral approach. The overlying skin was prepped and draped in usual sterile fashion. Lidocaine was used as anesthetic into the skin and subcutaneous tissue up to the level of area of concern. A 5 cm needle was used. It was placed via a lateral approach under ultrasound guidance. At this point, wire was placed and the needle was withdrawn. We note that the biopsy clip is located within a new adjacent cyst, likely small liquefied hematoma. During slight traction on the wire, the hook dislodged from the cyst and migrated proximally. The lesion of interest is located at the hook of the wire. Postprocedure mammogram confirms this. Wire was fixed to patient's skin. Findings were discussed with the surgeon over the phone. The patient tolerated the procedure well without any immediate complication. The patient was kept in the radiology department for short stay after the procedure and then taken to surgery for surgical excision. Targeted clip, associated density, and wire are identified in specimen mammogram. We note the area of interest is located at the periphery of the specimen. The patient was kept in hospital for short stay after the procedure and then discharged home in stable condition. IMPRESSION: Successful, uncomplicated needle localization with wire placement and surgical excision of biopsy-proven right breast cancer; full pathology results to follow. Pathology Results: Result: Malignant, Tubular carcinoma. A. RIGHT SECONDARY SENTINEL LYMPH NODE, EXCISION: One sentinel lymph node, negative for metastatic carcinoma. CK7 and REENA stains, both with appropriate controls on block A1, both negative for features of metastatic carcinoma. B. RIGHT PRIMARY SENTINEL LYMPH NODE, EXCISION: One sentinel lymph node, negative for metastatic carcinoma. CK7 and REENA stains, both with appropriate controls on block B1, both negative for features of metastatic carcinoma. C. 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 All margins negative for invasive carcinoma. Closest margins to invasive carcinoma: 5 mm from anterior and posterior margins. Tissue Density: Right: The breast tissue is heterogeneously dense. This may lower the sensitivity of mammography. Overall Assessment: Malignant Assessment: MG diagnostic mammo RT wo CAD - Right: Known biopsy proven malignancy, BI-RAD 6. Management: Surgical Consultation of the right breast. Diagnostic Mammogram of the right breast in 6 months. Electronically signed and approved by: Magalys Mcbride M.D. Radiologist
== END 2022-05-04 17:38 | disposition home or self-care (01) ==
LOC: OR 10:12
PROVIDERS: ATTEND Surgery
DX: C44.501 Unspecified malignant neoplasm of skin of breast (principal); I10 Essential (primary) hypertension; E78.00 Pure hypercholesterolemia, unspecified; C73 Malignant neoplasm of thyroid gland; R63.0 Anorexia; F41.9 Anxiety disorder, unspecified; N20.0 Calculus of kidney; M19.90 Unspecified osteoarthritis, unspecified site; Z17.0 Estrogen receptor positive status [ER+]; Z90.89 Acquired absence of other organs; Z96.643 Presence of artificial hip joint, bilateral; Z80.0 Family history of malignant neoplasm of digestive organs; Z80.3 Family history of malignant neoplasm of breast; Z82.49 Family history of ischemic heart disease and other diseases of the circulatory system; Z88.0 Allergy status to penicillin; Z88.2 Allergy status to sulfonamides
CPT/HCPCS: 38505; 88342; 88331; 88307; 88341; 77065; 76098; 19285; 38792; A9520; J2250; J1100; J2405; J0690; J2001 ×2; J3010; J2704

== ENCOUNTER → 2022-07-07 | Outpatient (CLI) | payer MEDICARE ==
--- NOTE | 2022-07-07 16:39 | BD ---
EXAMINATION TYPE: Appendicular Bone Density DATE OF EXAM: 07/07/2022 COMPARISON: NONE CLINICAL HISTORY: 81 years year old Female. ICD-10 CODE: C50.411 MALIG NEOPLM OF UPPER-OUTER QUADRAN T OF RI Height: 5FT 5.5INCHES Weight: 191.2 FRAX RISK QUESTIONS: Alcohol (3 or more units per day): NO Family History (Parent hip fracture): NO Glucocorticoids (More than 3mos): NO (Ex: prednisone, prednisolone, methylprednisolone, dexamethasone, and hydrocortisone). History of Fracture in Adulthood: NO Secondary Osteoporosis: 1. Type 1 Diabetes: NO 2. Hyperthyroidism: NO 3. Menopause before 45: NO 4. Malnutrition: NO 5. Chronic liver disease: NO Rheumatoid Arthritis: NO Current Tobacco Use: NO RISK FACTORS HISTORY OF: Hip Fracture (Right/Left): NO Spine Fracture: YES, LOWER BACK When: 2007 History of Wrist Fracture: NO Surgery to Spine/Hip(right/left)/Wrist (right/left): BILATERAL HIP REPLACEMENTS IN 2020, NO SURGERY T O LOWER BACK DUE TO FRACTURE Family History of Osteoporosis: YES, SISTERS (X2) Active: YES Diet low in dairy products/other sources of calcium: NO Postmenopausal woman: YES Take estrogen and/or progesterone medications: NO Lost more than 2 inches in height since high school: YES Frequent falls: YES Poor Health: GOOD Hyperparathyroidism: NO Adrenal Insufficiency: NO MEDICATIONS: Prednisone or other steroids: NO Thyroid Medications: YES Which medication: LEVOXYL How Long: TAKEN SINCE 2005 Osteoporosis Medications: NO Additional Medications: LOSARTAN POTASSIUM, SIMVASTATIN, HYDROCHLOROTHIAZIDE, VITAMIN D, MULTIVITAMIN , ZINC, PATIENT JUST BEGAN TAKING AN ESTROGEN FELICITAS AND CALCIUM 07/03/2022 Additional History: RECENT DX OF BREAST CANCER 04/2022, LUMPECTOMY AND RADIATION NO CHEMOTHERAPY EXAM MEASUREMENTS: Bone mineral densitometry was performed using the [employer] System. Bone mineral density about the L Wrist (g/cm2): 0.630 T Score values are as follows: -----Dist. R+U: 0.2 -----Prox. R+U: -0.9 -----Radius total: -0.7 BASELINE STUDY FRAX%s: NO FRAX DUE TO BILATERAL HIP REPLACEMENT IMPRESSION: Normal (Values between +1 and -1 indicate normal bone mass). Consider repeating this study in 5 year s or sooner if there is some new clinical indication. NOTE: T-SCORE=SD OF THE YOUNG ADULT MEAN.
== END | disposition home or self-care (01) ==
LOC: RADBDWWP 12:11
PROVIDERS: ATTEND Internal Medicine
DX: C50.411 Malignant neoplasm of upper-outer quadrant of right female breast (principal)
CPT/HCPCS: 77081

== ENCOUNTER → 2022-11-02 | Outpatient (CLI) | payer MEDICARE ==
--- NOTE | 2022-11-02 13:17 | MM ---
Reason for Exam: Known biopsy proven malignancy. Last screening mammogram was performed 7 month(s) ago. Patient History: Menarche at age 11. Patient has no children. Postmenopausal. Breast cancer, right, age 81. Previous chest radiation therapy at age 81. 05/04/2022, Lumpectomy on the Right side. 05/04/2022, Malignant US breast localization RT on the right side. 04/01/2022, Malignant US biopsy breast VAD RT on the right side. 1999, Benign Lumpectomy on the left side. Maternal aunt had breast cancer, age 70. Mother had breast cancer, age 86. Prior Study Comparison: 04/18/2020 Bilateral Screening Mammogram, [facility]. 03/24/2022 Bilateral MG 3D screening mammo w/cad, [facility]. 05/04/2022 Right MG diagnostic mammo RT wo CAD, [facility]. Tissue Density: The breast tissue is heterogeneously dense. This may lower the sensitivity of mammography. Findings: Analyzed By CAD. Surgical changes to the right breast upper outer quadrant are now present. Focal distortion presumed posttreatment change at this level is seen. Focal distortion in the left breast middle depth upper outer quadrant is redemonstrated. Overall Assessment: Probably benign, BI-RAD 3 Management: Diagnostic Mammogram of the right breast in 6 months. Precautionary 6 month follow-up right breast, new baseline. Results were given to the patient verbally at the time of exam. Electronically signed and approved by: Niranjan Vann M.D.
== END | disposition home or self-care (01) ==
LOC: RADMAMWWP 12:29
PROVIDERS: ATTEND Internal Medicine
DX: R92.2 Inconclusive mammogram (principal); Z85.3 Personal history of malignant neoplasm of breast; Z78.0 Asymptomatic menopausal state; Z80.3 Family history of malignant neoplasm of breast
CPT/HCPCS: 77066; G0279; 77062

== ENCOUNTER → 2023-05-05 | Outpatient (CLI) | payer MEDICARE ==
--- NOTE | 2023-05-05 14:43 | MM ---
Reason for Exam: Hx of breast cancer, conservation therapy. Last screening mammogram was performed 6 month(s) ago. Patient History: Menarche at age 11. Patient has no children. Postmenopausal. Breast cancer, right, age 81. Previous chest radiation therapy at age 81. 05/04/2022, Lumpectomy on the Right side. 05/04/2022, Malignant US breast localization RT on the right side. 04/01/2022, Malignant US biopsy breast VAD RT on the right side. 1999, Benign Lumpectomy on the left side. Maternal aunt had breast cancer, age 70. Mother had breast cancer, age 86. Tissue Density: The breast tissue is heterogeneously dense. This may lower the sensitivity of mammography. Findings: Analyzed By CAD. Pattern appears stable. Multiple surgical clips are within the right breast. Benign regional calcifications or subareolar left breast. No significant interval changes are evident. No suspicious groups of microcalcifications, spiculated or lobular masses, architectural distortion or other secondary signs of malignancy are mammographically apparent. Overall Assessment: Benign, BI-RAD 2 Management: Screening Mammogram of both breasts in 1 year. A negative mammogram report should not preclude additional follow up of suspicious palpable abnormalities. Patient should continue monthly self breast exam. A clinical breast exam by your physician is recommended on an annual basis and results should be correlated with mammographic findings. Electronically signed and approved by: Marco Castaneda D.O. Radiologis
== END | disposition home or self-care (01) ==
LOC: RADMAMWWP 14:15
PROVIDERS: ATTEND Radiology Radiation Oncology
DX: C50.411 Malignant neoplasm of upper-outer quadrant of right female breast (principal); R92.2 Inconclusive mammogram; Z78.0 Asymptomatic menopausal state; Z80.3 Family history of malignant neoplasm of breast; Z85.3 Personal history of malignant neoplasm of breast; Z17.0 Estrogen receptor positive status [ER+]
CPT/HCPCS: 77066; G0279; 77062

== ENCOUNTER → 2024-05-08 | Outpatient (CLI) | payer MEDICARE ==
--- NOTE | 2024-05-14 09:55 | MM ---
Reason for Exam: Screening (asymptomatic). Last screening mammogram was performed 12 month(s) ago. Patient History: Menarche at age 11. Patient has no children. Postmenopausal. Breast cancer, right, age 81. Previous chest radiation therapy at age 81. 05/04/2022, Lumpectomy on the Right side. 05/04/2022, Malignant US breast localization RT on the right side. 04/01/2022, Malignant US biopsy breast VAD RT on the right side. 1999, Benign Lumpectomy on the left side. Maternal aunt had breast cancer, age 70. Mother had breast cancer, age 86. Prior Study Comparison: 05/04/2022 Right MG diagnostic mammo RT wo CAD, [facility]. 11/02/2022 Bilateral MG 3D diag mammo w/cad [facility], [facility]. 05/05/2023 Bilateral MG 3D diag mammo w/cad [facility], [facility]. Tissue Density: The breasts are heterogeneously dense, which may obscure small masses. Findings: Analyzed By CAD. Pattern appears stable. Postsurgical changes are within the upper outer right breast. Multiple benign calcifications are within the anterior left breast. No significant interval change is evident. No suspicious groups of microcalcifications, spiculated or lobular masses, architectural distortion or other secondary signs of malignancy are mammographically apparent. Overall Assessment: Benign, BI-RAD 2 Management: Screening Mammogram of both breasts in 1 year. A negative mammogram report should not preclude additional follow up of suspicious palpable abnormalities. Patient should continue monthly self breast exam. A clinical breast exam by your physician is recommended on an annual basis and results should be correlated with mammographic findings. Note on Digna scores and lifetime risk: 1. A Digna score greater than 3% is considered moderate risk. If this is the case, consider specialist referral to assess eligibility for a risk reducing agent. 2. If overall lifetime risk for the development of breast cancer is 20% or higher, the patient may qualify for future screening with alternating mammogram and breast MRI. [facility], , 05/14/2024 9:52 AM. Electronically signed and approved by: Marco Castaneda D.O. Radiologis
== END | disposition home or self-care (01) ==
LOC: RADMAMWWP 13:45
PROVIDERS: ATTEND Radiology Radiation Oncology
DX: Z12.31 Encounter for screening mammogram for malignant neoplasm of breast (principal); Z78.0 Asymptomatic menopausal state; Z80.3 Family history of malignant neoplasm of breast; R92.333 Mammographic heterogeneous density, bilateral breasts
CPT/HCPCS: 77063; 77067

== ENCOUNTER → 2024-07-10 | Outpatient (CLI) | payer MEDICARE ==
--- NOTE | 2024-07-10 15:46 | BD ---
EXAMINATION TYPE: Axial Bone Density DATE OF EXAM: 07/10/2024 CLINICAL HISTORY: 83 years old Female. ICD-10 CODE: C50.411 BREAST CA , Additional History: Height: 62.4 in Weight: 190 lbs FRAX RISK QUESTIONS: History of Fracture in Adulthood: spine fx 2008 RISK FACTORS HISTORY OF: Spine Fracture: l spine 2007 Surgery to Hip(maria eugenia): 2020 MEDICATIONS: Thyroid Medications: yes Which medication: Levoxyl 30 + years EXAM MEASUREMENTS: Bone mineral densitometry was performed using the [employer] System. Bone mineral density about the L Wrist (g/cm2): 0.585 T Score values are as follows: -----Dist. R+U: -1.3 -----Prox. R+U: -1.3 -----Radius total: -1.5 Z Score values are as follows: -----Dist. R+U: 1.7 -----Prox. R+U: 1.7 -----Radius total: 1.5 Bone mineral density has: Decreased -4.3% since study of: 07/07/2022 IMPRESSION: Osteopenia (T Score between -2.5 and -1). There is slightly increased risk of fracture and the patient may be considered for treatment. Re-Screen 2-5 years. NOTE: T-SCORE=SD OF THE YOUNG ADULT MEAN. [facility], , 07/10/2024 3:43 PM
== END | disposition home or self-care (01) ==
LOC: RADBDWWP 12:53
PROVIDERS: ATTEND Internal Medicine
DX: C50.411 Malignant neoplasm of upper-outer quadrant of right female breast (principal); C44.321 Squamous cell carcinoma of skin of nose; E78.5 Hyperlipidemia, unspecified; M85.80 Other specified disorders of bone density and structure, unspecified site; Z71.3 Dietary counseling and surveillance
CPT/HCPCS: 77081